=== PATIENT | female | born 1970 | race Caucasian/White ===

== ENCOUNTER → 2018-06-09 | Outpatient (CLI) | payer MEDICAID ==
--- NOTE | 2018-06-10 07:46 | WOMENS IMAGING REPORT ---
EXAM DESCRIPTION: BILAT DIAGNOSTIC MAMMO W/CAD; U/S BREAST UNILATERAL, COMPL COMPLETED DATE/TIME: 06/09/2018 12:47 pm; 06/09/2018 1:34 pm REASON FOR STUDY: LEFT BREAST MASS; N63.20 N63.20 UNSPECIFIED LUMP IN THE LEFT BREAST, UNSPECIFIED QUAD COMPARISON: No previous available TECHNIQUE: Standard craniocaudal and mediolateral oblique views of each breast recorded using digita l acquisition. Additional left breast 90 mediolateral view, left breast cone compression in the lower outer quadran t in the area of palpable abnormality. Ultrasound left whole breast was also performed. LIMITATIONS: None. FINDINGS: RIGHT BREAST MASSES: No suspicious masses. CALCIFICATIONS: No new or suspicious calcifications. ARCHITECTURAL DISTORTION: None. DEVELOPING DENSITY: None. ASYMMETRY: None noted. OTHER: No other significant findings. LEFT BREAST MASSES: No suspicious masses. CALCIFICATIONS: No new or suspicious calcifications. ARCHITECTURAL DISTORTION: None. DEVELOPING DENSITY: None. ASYMMETRY: None noted. OTHER: No other significant finding. Read with the assistance of CAD: .[facility] - R2 Cenova Version 1.3 .[facility] - R2 Cenova Version 1.3 .[facility] Imaging - R2 Cenova Version 2.4 .[facility] - R2 Cenova Version 2.4 .[facility] - R2 Production Operations Inspector Version 9.2 Left breast ultrasound: Patient presents with a palpable area in the left breast lower outer quadrant. In the area of palpab le abnormality 4 to 5 o'clock position, a 6 mm simple breast parenchymal cyst is present. Elsewhere in the left breast, at about the 9 to 10 o'clock position a 4 mm cyst is present. In the 1 to 2 o'clock position an 8 mm cyst is present. No worrisome acoustic absorption or solid nodules. IMPRESSION: No mammographic evidence for malignancy right breast. No mammographic or sonographic evidence for malignancy left breast. BREAST DENSITY: c. The breasts are heterogeneously dense, which may obscure small masses. BIRAD: 2 Benign findings. RECOMMENDATION: RECOMMENDED FOLLOW UP: Please continue yearly bilateral screening mammography. Cons ider tomosynthesis given heterogeneously dense tissue SPECIFIC INTERVENTION/IMAGING/CONSULTATION RECOMMENDED:No additional intervention/ imaging/consultati on needed at this time. COMMUNICATION:Patient notified by letter COMMENT: The patient has been notified of the results by letter per MQSA requirements. Additional no tification policies are in place for contacting patient with suspicious or incomplete findings. Quality ID #[id number]: The [employer] recommends an annual screening mammogram for women aged 40 years or over. This facility utilizes a reminder system to ensure that all patients receive reminder letters, and/or direct phone calls for appointments. This includes reminders for routine scr eening mammograms, diagnostic mammograms, or other Breast Imaging Interventions when appropriate. Th is patient will be placed in the appropriate reminder system. The [employer] (ACR) has developed recommendations for screening MRI of the breast s in certain patient populations, to be used in conjunction with mammography. Breast MRI surveillanc e may be appropriate for women with more than 20% lifetime risk of developing breast cancer as deter mined by genetic testing, significant family history of the disease, or history of mantle radiation f or Hodgkins Disease. ACR Practice Guidelines 2008. TECHNICAL DOCUMENTATION: FINDING NUMBER: (1) ASSESSMENT: (1) JOB ID: [id number] [employer]- All Rights Reserved Reading location - IP/workstation name: [email or web address]
--- NOTE | 2018-06-10 07:46 | WOMENS IMAGING REPORT ---
EXAM DESCRIPTION: BILAT DIAGNOSTIC MAMMO W/CAD; U/S BREAST UNILATERAL, COMPL COMPLETED DATE/TIME: 06/09/2018 12:47 pm; 06/09/2018 1:34 pm REASON FOR STUDY: LEFT BREAST MASS; N63.20 N63.20 UNSPECIFIED LUMP IN THE LEFT BREAST, UNSPECIFIED QUAD COMPARISON: No previous available TECHNIQUE: Standard craniocaudal and mediolateral oblique views of each breast recorded using digita l acquisition. Additional left breast 90 mediolateral view, left breast cone compression in the lower outer quadran t in the area of palpable abnormality. Ultrasound left whole breast was also performed. LIMITATIONS: None. FINDINGS: RIGHT BREAST MASSES: No suspicious masses. CALCIFICATIONS: No new or suspicious calcifications. ARCHITECTURAL DISTORTION: None. DEVELOPING DENSITY: None. ASYMMETRY: None noted. OTHER: No other significant findings. LEFT BREAST MASSES: No suspicious masses. CALCIFICATIONS: No new or suspicious calcifications. ARCHITECTURAL DISTORTION: None. DEVELOPING DENSITY: None. ASYMMETRY: None noted. OTHER: No other significant finding. Read with the assistance of CAD: .[facility] - R2 Cenova Version 1.3 .[facility] - R2 Cenova Version 1.3 .[facility] Imaging - R2 Cenova Version 2.4 .[facility] - R2 Cenova Version 2.4 .[facility] - R2 Furniture Removalist Version 9.2 Left breast ultrasound: Patient presents with a palpable area in the left breast lower outer quadrant. In the area of palpab le abnormality 4 to 5 o'clock position, a 6 mm simple breast parenchymal cyst is present. Elsewhere in the left breast, at about the 9 to 10 o'clock position a 4 mm cyst is present. In the 1 to 2 o'clock position an 8 mm cyst is present. No worrisome acoustic absorption or solid nodules. IMPRESSION: No mammographic evidence for malignancy right breast. No mammographic or sonographic evidence for malignancy left breast. BREAST DENSITY: c. The breasts are heterogeneously dense, which may obscure small masses. BIRAD: 2 Benign findings. RECOMMENDATION: RECOMMENDED FOLLOW UP: Please continue yearly bilateral screening mammography. Cons ider tomosynthesis given heterogeneously dense tissue SPECIFIC INTERVENTION/IMAGING/CONSULTATION RECOMMENDED:No additional intervention/ imaging/consultati on needed at this time. COMMUNICATION:Patient notified by letter COMMENT: The patient has been notified of the results by letter per MQSA requirements. Additional no tification policies are in place for contacting patient with suspicious or incomplete findings. Quality ID #[id number]: The [employer] recommends an annual screening mammogram for women aged 40 years or over. This facility utilizes a reminder system to ensure that all patients receive reminder letters, and/or direct phone calls for appointments. This includes reminders for routine scr eening mammograms, diagnostic mammograms, or other Breast Imaging Interventions when appropriate. Th is patient will be placed in the appropriate reminder system. The [employer] (ACR) has developed recommendations for screening MRI of the breast s in certain patient populations, to be used in conjunction with mammography. Breast MRI surveillanc e may be appropriate for women with more than 20% lifetime risk of developing breast cancer as deter mined by genetic testing, significant family history of the disease, or history of mantle radiation f or Hodgkins Disease. ACR Practice Guidelines 2008. TECHNICAL DOCUMENTATION: FINDING NUMBER: (1) ASSESSMENT: (1) JOB ID: [id number] [employer]- All Rights Reserved Reading location - IP/workstation name: [email or web address]-RR
== END ==
LOC: WI 12:30
PROVIDERS: ATTEND Family Medicine
DX: N63.23 Unspecified lump in the left breast, lower outer quadrant (principal)
CPT/HCPCS: 76641; 77066

== ENCOUNTER 2018-08-25 18:24 | Emergency (ER) | payer MEDICAID ==
[2018-08-25] MEDS ORDERED: ASPIRIN 81 MG TABLET, CHEWABLE PO ONE (18:57)
[2018-08-25] MEDS ORDERED: IPRATROPIUM/ALBUTEROL 0.5-2.5 MG/3 ML AMPUL NEB ONE (18:58)
[2018-08-25] MEDS ORDERED: METHYLPREDNISOLONE INJ 125 MG/2 ML SDV IV ONE (18:58)
--- NOTE | 2018-08-25 18:59 | RADIOLOGY REPORT (SQ) ---
EXAM DESCRIPTION: CHEST 2 VIEWS COMPLETED DATE/TIME: 08/25/2018 6:46 pm REASON FOR STUDY: chest pain COMPARISON: 12/31/2011 EXAM PARAMETERS: NUMBER OF VIEWS: two views TECHNIQUE: Digital Frontal and Lateral radiographic views of the chest acquired. RADIATION DOSE: NA LIMITATIONS: none FINDINGS: LUNGS AND PLEURA: Blunting of the posterior costophrenic angles. No focal consolidation o r pneumothorax. MEDIASTINUM AND HILAR STRUCTURES: No masses or contour abnormalities. HEART AND VASCULAR STRUCTURES: Heart normal size. No evidence for failure. BONES: No acute findings. HARDWARE: None in the chest. OTHER: No other significant finding. IMPRESSION: Blunting of the posterior costophrenic angles, likely secondary to atelectasis versus tr sonal pleural effusions. TECHNICAL DOCUMENTATION: JOB ID: [id number] [employer]- All Rights Reserved Reading location - IP/workstation name: [email or web address]
--- NOTE | 2018-08-25 19:03 | ER Document Report ---
ED Medical Screen (RME) - General Chief Complaint: Chest Tightness Stated Complaint: CHEST PAIN Time Seen by Provider: 08/25/18 18:48 Information source: Patient Notes: 47-year-old female presents emergency department with complaints of shortness of breath and chest pain. Patient has a history of COPD. She was seen at her family doctor's office today and given 3 nebulizer treatments. She was sent home with a prescription for azithromycin, nebulizer, and prednisone. Patient states that she filled the medications. She took her first dose of the azithromycin today. She has not yet use the nebulizer or taking the prednisone. Patient is not on home oxygen. Patient states that she is having worsening shortness of breath throughout the day. Patient states that her chest feels very tight and there is a pressure sensation. She denies any alleviating or exacerbating factors. I have greeted and performed a rapid initial assessment of this patient. A comprehensive ED assessment and evaluation of the patient, analysis of test results and completion of the medical decision making process will be conducted by additional ED providers. PHYSICAL EXAMINATION: GENERAL: Well-appearing, well-nourished and in no acute distress. HEAD: Atraumatic, normocephalic. EYES: Pupils equal round extraocular movements intact, conjunctiva are normal. ENT: Nares patent NECK: Normal range of motion LUNGS: No respiratory distress Musculoskeletal: Normal range of motion NEUROLOGICAL: Normal speech, normal gait. PSYCH: Normal mood, normal affect. SKIN: Warm, Dry, normal turgor, no rashes or lesions noted. TRAVEL OUTSIDE OF THE [place] IN LAST 30 DAYS: No - Related Data Allergies/Adverse Reactions: Penicillins Allergy (Severe, Verified 08/25/18 18:24) Anaphylaxis Past Medical History - Social History Chew tobacco use (# tins/day): No Frequency of alcohol use: None Drug Abuse: None - Past Medical History Cardiac Medical History: Reports: Hx Heart Attack, Hx Hypertension Pulmonary Medical History: Reports: Hx Asthma, Hx COPD Renal/ Medical History: Denies: Hx Peritoneal Dialysis Past Surgical History: Reports: Hx Cholecystectomy - Immunizations Hx Diphtheria, Pertussis, Tetanus Vaccination: Yes Physical Exam - Vital signs Vitals: Temp Pulse Resp BP Pulse Ox 98.6 F 102 H 28 H 144/94 H 95 08/25/18 18:46 08/25/18 18:46 08/25/18 18:46 08/25/18 18:46 08/25/18 18:46 Course - Vital Signs Vital signs: Temp Pulse Resp BP Pulse Ox 98.6 F 102 H 28 H 144/94 H 95 08/25/18 18:46 08/25/18 18:46 08/25/18 18:46 08/25/18 18:46 08/25/18 18:46 Doctor's Discharge - Discharge Referrals: SHAUNA OCHOA MD [Primary Care Provider] - Follow up as needed
[2018-08-25 19:25] LABS: ABSOLUTE BASOPHILS # (AUTO) 0.1 10^3/uL (0.0-0.2); ABSOLUTE EOSINOPHILS # (AUTO) 0.4 10^3/uL (0.0-0.6); ABSOLUTE LYMPHOCYTES (AUTO) 1.4 10^3/uL (0.5-4.7); ABSOLUTE NEUT (AUTO) 11.6 10^3/uL (1.7-8.2); BASOPHILS % (AUTO) 0.6 % (0-2); EOSINOPHILS % (AUTO) 2.7 % (0-6); HEMOGLOBIN 13.8 g/dL (12.0-15.5); LYMPHOCYTES % (AUTO) 9.9 % (13-45); MEAN CORPUSCULAR HEMOGLOBIN 32.4 pg (27.0-33.4); MEAN CORPUSCULAR HGB CONC 34.4 g/dL (32.0-36.0); MEAN CORPUSCULAR VOLUME 94 fl (80-97); MONOCYTES % (AUTO) 6.9 % (3-13); PLATELET COUNT 333 10^3/uL (150-450); RED BLOOD COUNT 4.25 10^6/uL (3.72-5.28); RED CELL DISTRIBUTION WIDTH 12.7 % (11.5-14.0); SEGMENTED NEUTROPHILS % (AUTO) 79.9 % (42-78); TOTAL CELLS COUNTED % (AUTO) 100 %; WHITE BLOOD COUNT 14.6 10^3/uL (4.0-10.5)
[2018-08-25 19:42] LABS: ALANINE AMINOTRANSFERASE 22 U/L (9-52); ALBUMIN 4.4 g/dL (3.5-5.0); ALKALINE PHOSPHATASE 51 U/L (38-126); ANION GAP 12 (5-19); ASPARTATE AMINO TRANSFERASE 24 U/L (14-36); BILIRUBIN,DIRECT 0.2 mg/dL (0.0-0.4); BILIRUBIN,TOTAL 0.4 mg/dL (0.2-1.3); BLOOD UREA NITROGEN 11 mg/dL (7-20); CALCIUM 9.3 mg/dL (8.4-10.2); CARBON DIOXIDE 24 mmol/L (22-30); CHLORIDE 105 mmol/L (98-107); GLUCOSE 105 mg/dL (75-110); POTASSIUM 4.4 mmol/L (3.6-5.0); SODIUM 140.9 mmol/L (137-145); TOTAL PROTEIN 7.5 g/dL (6.3-8.2)
--- NOTE | 2018-08-25 20:45 | EKG REPORT ---
SEVERITY:- ABNORMAL ECG - SINUS TACHYCARDIA VENTRICULAR BIGEMINY BORDERLINE ST DEPRESSION, INFERIOR LEADS : Confirmed by: Cheryl Sandoval MD 25-Aug-2018 20:43:54
--- NOTE | 2018-08-25 22:03 | ER Document Report ---
ED General - General Mode of Arrival: Ambulatory Information source: Patient TRAVEL OUTSIDE OF THE [place] IN LAST 30 DAYS: No <DAVID KELLEY - Last Filed: 08/25/18 22:14> <ASHLEYJOSÉ MIGUEL Piotr - Last Filed: 08/29/18 10:49> - General Chief Complaint: Chest Tightness Stated Complaint: CHEST PAIN Time Seen by Provider: 08/25/18 18:48 Notes: Patient is a 47-year-old female presenting to the emergency department complaining of increased shortness of breath and chest tightness onset today. Patient states that she began to have general malaise and cold symptoms 3 days ago after being around sick contacts. She states today she presented to her previous primary care physician's office, complaining of shortness of breath and chest tightness after which she received 3 nebulizer treatments and was given a prescription for prednisone and a Z-Ryan. She states she took her first dose of Z-Ryan today. She states that she began to have increased shortness of breath today and increased anxiety. Patient states while in triage, she received 1 breathing treatment and a dose of steroids. She also complains of chest tightness and back pain. (DAVID KELLEY) - Related Data Allergies/Adverse Reactions: Penicillins Allergy (Severe, Verified 08/25/18 18:24) Anaphylaxis Past Medical History - General Information source: Patient - Social History Smoking Status: Former Smoker Chew tobacco use (# tins/day): No Frequency of alcohol use: None Drug Abuse: None Family History: Reviewed & Not Pertinent Patient has suicidal ideation: No Patient has homicidal ideation: No - Past Medical History Cardiac Medical History: Reports: Hx Heart Attack, Hx Hypertension Pulmonary Medical History: Reports: Hx Asthma, Hx COPD Past Surgical History: Reports: Hx Cholecystectomy - Immunizations Hx Diphtheria, Pertussis, Tetanus Vaccination: Yes <DAVID KELLEY - Last Filed: 08/25/18 22:14> Review of Systems - Review of Systems Constitutional: See HPI, Malaise EENT: No symptoms reported Cardiovascular: See HPI, Chest pain - chest tightness Respiratory: See HPI, Short of breath Gastrointestinal: No symptoms reported Genitourinary: No symptoms reported Female Genitourinary: No symptoms reported Musculoskeletal: No symptoms reported Skin: No symptoms reported Neurological/Psychological: No symptoms reported -: Yes All other systems reviewed and negative <DAVID KELLEY - Last Filed: 08/25/18 22:14> Physical Exam <DAVID KELLEY - Last Filed: 08/25/18 22:14> <ASHLEYJOSÉ MIGUEL - Last Filed: 08/29/18 10:49> - Vital signs Vitals: Temp Pulse Resp BP Pulse Ox 98.6 F 102 H 28 H 144/94 H 95 08/25/18 18:46 08/25/18 18:46 08/25/18 18:46 08/25/18 18:46 08/25/18 18:46 - Notes Notes: GENERAL: Alert, interacts well. No acute distress. HEAD: Normocephalic, atraumatic. EYES: Pupils equal, round, and reactive to light. Extraocular movements intact. ENT: Oral mucosa moist, tongue midline. NECK: Full range of motion. Supple. Trachea midline. LUNGS: Poor air movement. HEART: Mild tachycardia. No murmurs, gallops, or rubs. ABDOMEN: Soft, non-tender. Non-distended. Bowel sounds present in all 4 quadrants. EXTREMITIES: Moves all 4 extremities spontaneously. No edema, radial and dorsalis pedis pulses 2/4 bilaterally. No cyanosis. NEUROLOGICAL: Alert and oriented x3. Normal speech. PSYCH: Normal affect, normal mood. SKIN: Warm, dry, normal turgor. No rashes or lesions noted. (DAVID KELLEY) Course - Laboratory Result Diagrams: 08/25/18 19:10 08/25/18 19:10 <DAVID KELLEY - Last Filed: 08/25/18 22:14> - Laboratory Result Diagrams: 08/25/18 19:10 08/25/18 19:10 - Diagnostic Test Radiology reviewed: Image reviewed, Reports reviewed - EKG Interpretation by Ct EKG shows normal: Sinus rhythm Rate: Tachycardia - normal axis <ASHLEYJOSÉ MIGUEL - Last Filed: 08/29/18 10:49> - Re-evaluation Re-evalutation: 08/26/18 02:26 Patient symptoms improved with nebulizer treatments. Offered inpatient admittance for observation patient declined and would like to go home. She is oxygenating at 96% on room air in no distress with reevaluation patient has adequate air movement but continues to have mild wheezing. Advised patient to use albuterol puffer 4 puffs every 4 hours for the next 2 days and to continue take her steroids and azithromycin provided by her primary care provider. Return precautions provided 08/26/18 02:29 Of note, patient denies any chest pain during her hospital stay. She did states she had chest tightness but that resolved after albuterol treatment (JOSÉ MIGUEL RAMIREZ) - Vital Signs Vital signs: Temp Pulse Resp BP Pulse Ox 98.6 F 102 H 15 131/77 H 95 08/25/18 18:46 08/25/18 18:46 08/26/18 02:01 08/26/18 02:01 08/26/18 02:01 - Laboratory Laboratory results interpreted by me: 08/25/18 19:10 WBC 14.6 H Seg Neutrophils % 79.9 H Lymphocytes % 9.9 L Absolute Neutrophils 11.6 H Discharge <DAVID KELLEY - Last Filed: 08/25/18 22:14> <JOSÉ MIGUEL RAMIREZ - Last Filed: 08/29/18 10:49> - Discharge Clinical Impression: COPD exacerbation Condition: Good Disposition: HOME, SELF-CARE Instructions: Chronic Obstructive Lung Disease ([facility]) Additional Instructions: Please take all antibiotics in steroids that were prescribed by your primary care provider as directed. Please use albuterol puffer 4 puffs every 4 hours for the next 2 days while awake and then 2 puffs every 4 hours as needed thereafter Referrals: SHAUNA OCHOA MD [PEDIATRICS] - Follow up in 3-5 days Scribe Attestation: 08/29/18 10:49 I personally performed the services described in the documentation, reviewed and edited the documentation which was dictated to the scribe in my presence, and it accurately records my words and actions. (JOSÉ MIGUEL RAMIREZ) Scribe Documentation - Scribe Written by Heather:: Heather Kaye, 08/25/2018 22:19 acting as scribe for :: Ashley <DAVID KELLEY - Last Filed: 08/25/18 22:14>
[2018-08-25] MEDS ORDERED: IPRATROPIUM BROMIDE 0.02% NEB 0.5 MG/2.5 ML AMPUL NEB PRN (22:09)
[2018-08-25] MEDS ORDERED: ALBUTEROL SULFATE 0.083% NEB 2.5 MG/3 ML AMPUL NEB ONE (22:10)
[2018-08-26] MEDS ORDERED: IPRATROPIUM BROMIDE 0.02% NEB 0.5 MG/2.5 ML AMPUL NEB ONE (00:43)
[2018-08-26] MEDS ORDERED: ALBUTEROL SULFATE 0.083% NEB 2.5 MG/3 ML AMPUL NEB ONE (00:43)
[2018-08-26 02:17] VITALS: BP 131/77
[2018-08-26] MEDS ORDERED: KETOROLAC TROMETHAMINE INJ/PF 30 MG/1 ML SDV IV ONE (02:24)
== END 2018-08-26 02:45 | disposition home or self-care (01) ==
LOC: ER 18:24
DX: J44.1 Chronic obstructive pulmonary disease with (acute) exacerbation (principal); R07.9 Chest pain, unspecified; R53.81 Other malaise; I10 Essential (primary) hypertension; Z90.49 Acquired absence of other specified parts of digestive tract; Z88.0 Allergy status to penicillin; I25.2 Old myocardial infarction; Z87.891 Personal history of nicotine dependence
CPT/HCPCS: 93005; 94640 ×2; 99285; 96374; 96375; 36415; 85025; 80053; 84484; 71046; 93010; J2930; J1885; J3490 ×2; J7620

== ENCOUNTER 2019-06-22 19:40 | Inpatient (IN) | payer SELFPAY ==
--- NOTE | 2019-06-22 19:55 | ER Document Report ---
ED General - General Stated Complaint: TROUBLE BREATHING Time Seen by Provider: 06/22/19 19:49 Primary Care Provider: SUSAN TREJO MD [Primary Care Provider] - Follow up as needed TRAVEL OUTSIDE OF THE [place] IN LAST 30 DAYS: No - HPI Notes: Patient is a 48-year-old female that presents to the emergency department for chief complaint of shortness of breath. Patient called EMS tonight complaining of increased shortness of breath. She states she has had progressive shortness of breath over the last 4 days. She does have COPD and was recently started on home oxygen. EMS states they found her on 1-1/2 L nasal cannula oxygen and the tubing was very long. Her O2 saturation was 62% and she had significant increased work of breathing. EMS administered DuoNeb, 2 albuterol's, 125 mg IV Solu-Medrol and 1 g IV magnesium as well as placing the patient on BiPAP. Patient states that she is feeling somewhat better since receiving intervention by EMS. She denies history of needing CPAP or intubation in the past. She denies tobacco use. She has been using her home albuterol and other inhalers. Patient states that over the last 4 days she has had intermittent chest pain but cannot elaborate on how long it lasts or what it felt like. She does states she has had a fever and cough for the last few days as well. She denies vomiting or diarrhea. Past Medical History: Hypertension, COPD Past Surgical History: Reviewed in chart Social History: Tobacco drug and alcohol use Family History: Reviewed and noncontributory for presenting illness Allergies: Reviewed, see documented allergy list. REVIEW OF SYSTEMS: CONSTITUTIONAL : fever No chills No diaphoresis No recent illness EENT: No vision changes No congestion No sore throat CARDIOVASCULAR: chest pain No palpitations RESPIRATORY: shortness of breath cough No difficulty breathing GASTROINTESTINAL: No abdominal pain No nausea No vomiting No diarrhea GENITOURINARY: No dysuria No hematuria No difficulty urinating MUSCULOSKELETAL: No back pain No leg pain No arm pain SKIN: No rashes No lesions LYMPHATIC: No swollen, enlarged glands. NEUROLOGICAL: No lightheadedness No headache No weakness No paresthesias PSYCHIATRIC: No anxiety No depression PHYSICAL EXAMINATION: Vital signs reviewed, nursing noted reviewed. GENERAL: In mild respiratory distress. Alert, nontoxic. HEAD: Atraumatic, normocephalic. EYES: Eyes appear normal, extraocular movements intact, sclera anicteric, conjunctiva are normal. ENT: nares patent, oropharynx clear without exudates. Moist mucous membranes. NECK: Normal range of motion, supple without lymphadenopathy LUNGS: Breath sounds diminished with expiratory wheezing. Patient tachypneic with mild accessory muscle use and no retractions. HEART: Regular rate and rhythm without murmurs ABDOMEN: Soft, nontender, normoactive bowel sounds. No rebound, guarding, or rigidity. No masses appreciated. EXTREMITIES: Nontender, good range of motion, no pitting or edema. NEUROLOGICAL: No focal neurological deficits. Moves all extremities spontaneously Motor and sensory grossly intact on exam. PSYCH: Normal mood, normal affect. SKIN: Warm, Dry, normal turgor, no rashes or lesions noted on exposed skin - Related Data Allergies/Adverse Reactions: Penicillins Allergy (Severe, Verified 08/25/18 18:24) Anaphylaxis Past Medical History - Social History Smoking Status: Former Smoker Family History: Reviewed & Not Pertinent - Past Medical History Cardiac Medical History: Reports: Hx Heart Attack, Hx Hypertension Pulmonary Medical History: Reports: Hx Asthma, Hx COPD Renal/ Medical History: Denies: Hx Peritoneal Dialysis Past Surgical History: Reports: Hx Cholecystectomy - Immunizations Hx Diphtheria, Pertussis, Tetanus Vaccination: Yes Physical Exam - Vital signs Vitals: Pulse Resp BP 113 H 33 H 139/96 H 06/22/19 19:40 06/22/19 19:40 06/22/19 19:40 Course - Re-evaluation Re-evalutation: 06/22/19 19:55 Vitals reviewed. Nursing notes reviewed. Patient appeared on BiPAP by EMS. She received DuoNeb, albuterol x2, Solu-Medrol 125 mg and 1 g of IV magnesium. Patient's initial presentation is consistent with COPD exacerbation. She has reported improvement in her respiratory status while on BiPAP per EMS and will remain on BiPAP. Blood work has been ordered. 06/22/19 21:31 Patient's ABG shows hypercapnic respiratory failure with decompensation. Her cardiac enzymes are normal and EKG showed no ischemia to suggest acute ACS. Patient does have an elevated WBC count without report of fever. She has been given a dose of azithromycin. Chest x-ray shows no underlying pneumonia. Clinically do not suspect sepsis as this patient is nontoxic-appearing however she is meeting criteria. Her leukocytosis may be secondary to steroids. Blood cultures and lactate have been obtained. Patient's care discussed with Dr. Calderon who accepts admission Laboratory 06/22/19 06/22/19 06/22/19 20:32 20:32 20:32 WBC 23.4 H RBC 4.26 Hgb 13.3 Hct 39.8 MCV 94 MCH 31.1 MCHC 33.3 RDW 14.7 H Plt Count 344 Lymph % (Auto) Not Reportable Ness % (Auto) Not Reportable Eos % (Auto) Not Reportable Baso % (Auto) Not Reportable Absolute Neuts (auto) Not Reportable Absolute Lymphs (auto) Not Reportable Absolute Monos (auto) Not Reportable Absolute Eos (auto) Not Reportable Absolute Basos (auto) Not Reportable Total Counted 100 Seg Neutrophils % Not Reportable Seg Neuts % (Manual) 94 H Lymphocytes % (Manual) 3 L Atypical Lymphs % 1 Monocytes % (Manual) 1 L Eosinophils % (Manual) 1 Basophils % (Manual) 0 Abs Neuts (Manual) 22.0 H Abs Lymphs (Manual) 0.9 Abs Monocytes (Manual) 0.2 Absolute Eos (Manual) 0.2 Abs Basophils (Manual) 0.0 Platelet Comment ADEQUATE Anisocytosis SLIGHT Carbonic Acid HCO3/H2CO3 Ratio ABG pH ABG pCO2 ABG pO2 ABG HCO3 ABG Total CO2 ABG O2 Saturation ABG Base Excess FiO2 Sodium 138.4 Potassium 4.9 Chloride 100 Carbon Dioxide 29 Anion Gap 9 BUN 6 L Creatinine 0.69 Est GFR ( Amer) > 60 Est GFR (MDRD) Non-Af > 60 Glucose 193 H Calcium 8.5 Total Bilirubin 0.2 Direct Bilirubin 0.2 Neonat Total Bilirubin Not Reportable Neonat Direct Bilirubin Not Reportable Neonat Indirect Bili Not Reportable AST 47 H ALT 28 Alkaline Phosphatase 54 Troponin I < 0.012 Total Protein 6.7 Albumin 4.2 06/22/19 20:32 WBC RBC Hgb Hct MCV MCH MCHC RDW Plt Count Lymph % (Auto) Ness % (Auto) Eos % (Auto) Baso % (Auto) Absolute Neuts (auto) Absolute Lymphs (auto) Absolute Monos (auto) Absolute Eos (auto) Absolute Basos (auto) Total Counted Seg Neutrophils % Seg Neuts % (Manual) Lymphocytes % (Manual) Atypical Lymphs % Monocytes % (Manual) Eosinophils % (Manual) Basophils % (Manual) Abs Neuts (Manual) Abs Lymphs (Manual) Abs Monocytes (Manual) Absolute Eos (Manual) Abs Basophils (Manual) Platelet Comment Anisocytosis Carbonic Acid 1.51 H HCO3/H2CO3 Ratio 14:1 ABG pH 7.25 L ABG pCO2 50.2 H ABG pO2 129.6 H ABG HCO3 21.3 ABG Total CO2 22.8 ABG O2 Saturation 98.1 H ABG Base Excess -6.3 FiO2 35% Sodium Potassium Chloride Carbon Dioxide Anion Gap BUN Creatinine Est GFR ( Amer) Est GFR (MDRD) Non-Af Glucose Calcium Total Bilirubin Direct Bilirubin Neonat Total Bilirubin Neonat Direct Bilirubin Neonat Indirect Bili AST ALT Alkaline Phosphatase Troponin I Total Protein Albumin Chest X-Ray 06/22/19 19:49 IMPRESSION: No acute disease. copyright 2010 [employer]- All Rights Reserved - Vital Signs Vital signs: Temp Pulse Resp BP Pulse Ox 97.6 F 113 H 21 H 126/91 H 98 06/22/19 20:02 06/22/19 19:40 06/22/19 21:01 06/22/19 21:01 06/22/19 21:01 - Laboratory Result Diagrams: 06/22/19 20:32 06/22/19 20:32 Laboratory results interpreted by me: 06/22/19 06/22/19 06/22/19 20:32 20:32 20:32 WBC 23.4 H RDW 14.7 H Seg Neuts % (Manual) 94 H Lymphocytes % (Manual) 3 L Monocytes % (Manual) 1 L Abs Neuts (Manual) 22.0 H Carbonic Acid 1.51 H ABG pH 7.25 L ABG pCO2 50.2 H ABG pO2 129.6 H ABG O2 Saturation 98.1 H BUN 6 L Glucose 193 H AST 47 H - EKG Interpretation by Me Additional EKG results interpreted by me: 06/22/19 20:41 Interpreted by myself 1950:Sinus tachycardia, rate 110, borderline right axis, no STEMI, no ectopy Critical Care Note - Critical Care Note Total time excluding time spent on procedures (mins): 42 Comments: Critical care time 42 exclusive from separate billable procedures for a patient requiring complex medical decision making, and high potential for clinical deterioration. Time spent obtaining history from patient or surrogate, discussions with consultants, development of treatment plan with patient or surrogate, evaluation of patient's response to treatment, examination of patient, ordering and performing treatments and interventions, ordering and review of laboratory studies, re-evaluation of patient's condition, ordering and review of radiographic studies and review of old charts Discharge - Discharge Clinical Impression: COPD exacerbation Hypercapnic respiratory failure Qualifiers: Chronicity: acute Qualified Code(s): J96.02 - Acute respiratory failure with hypercapnia Condition: Stable Disposition: ADMITTED INPATIENT Admitting Provider: Kvng (Hospitalist) Unit Admitted: Telemetry
--- NOTE | 2019-06-22 20:53 | RADIOLOGY REPORT (SQ) ---
EXAM DESCRIPTION: XR CHEST 1 VIEW COMPLETED DATE/TME: 06/22/2019 19:49 CLINICAL HISTORY: 48 years, Female, shortness of breath COMPARISON: Prior study from 12/31/2011 NUMBER OF VIEWS: One TECHNIQUE: Single frontal view of the chest was obtained portably. LIMITATIONS: None. FINDINGS: Cardiac and mediastinal contours are normal in appearance. Lungs are clear. No pleural effusion or pneumothorax. IMPRESSION: No acute disease. copyright 2010 [employer]- All Rights Reserved
[2019-06-22 20:59] LABS: ARTERIAL BLOOD BASE EXCESS -6.3 mmol/L; ARTERIAL BLOOD H2CO3 1.51 mmol/L (1.05-1.35); ARTERIAL BLOOD HCO3 21.3 mmol/L (20-24); ARTERIAL BLOOD O2 SATURATION 98.1 % (94-98); ARTERIAL BLOOD PCO2 50.2 mmHg (35-45); ARTERIAL BLOOD PH 7.25 (7.35-7.45); ARTERIAL BLOOD PO2 129.6 mmHg (80-100); ARTERIAL BLOOD TOTAL CO2 22.8 mmol/L (21-25)
[2019-06-22 21:00] LABS: ARTERIAL BLOOD FIO2 35%
[2019-06-22 21:03] LABS: HEMATOCRIT 39.8 % (36.0-47.0); HEMOGLOBIN 13.3 g/dL (12.0-15.5); MEAN CORPUSCULAR HEMOGLOBIN 31.1 pg (27.0-33.4); MEAN CORPUSCULAR HGB CONC 33.3 g/dL (32.0-36.0); MEAN CORPUSCULAR VOLUME 94 fl (80-97); PLATELET COUNT 344 10^3/uL (150-450); RED BLOOD COUNT 4.26 10^6/uL (3.72-5.28); RED CELL DISTRIBUTION WIDTH 14.7 % (11.5-14.0); WHITE BLOOD COUNT 23.4 10^3/uL (4.0-10.5)
[2019-06-22 21:13] LABS: ALBUMIN 4.2 g/dL (3.5-5.0); ALKALINE PHOSPHATASE 54 U/L (38-126); ANION GAP 9 (5-19); ASPARTATE AMINO TRANSFERASE 47 U/L (14-36); BILIRUBIN,DIRECT 0.2 mg/dL (0.0-0.4); BILIRUBIN,TOTAL 0.2 mg/dL (0.2-1.3); BLOOD UREA NITROGEN 6 mg/dL (7-20); CALCIUM 8.5 mg/dL (8.4-10.2); CARBON DIOXIDE 29 mmol/L (22-30); CHLORIDE 100 mmol/L (98-107); GLUCOSE 193 mg/dL (75-110); POTASSIUM 4.9 mmol/L (3.6-5.0); TOTAL PROTEIN 6.7 g/dL (6.3-8.2)
[2019-06-22 21:23] LABS: ABSOLUTE LYMPHOCYTES# (MANUAL) 0.9 10^3/uL (0.5-4.7); ABSOLUTE MONOCYTES # (MANUAL) 0.2 10^3/uL (0.1-1.4); ANISOCYTOSIS SLIGHT; BASOPHILS % (MANUAL) 0 % (0-2); EOSINOPHILS % (MANUAL) 1 % (0-6); LYMPHOCYTES % (MANUAL) 3 % (13-45); MONOCYTES % (MANUAL) 1 % (3-13); PLATELET COMMENT ADEQUATE; SEGMENTED NEUTROPHILS % (MAN) 94 % (42-78); TOTAL CELLS COUNTED 100
[2019-06-22] MEDS ORDERED: AZITHROMYCIN INJ 500 MG VIAL IV ONE (21:27)
[2019-06-22] MEDS ORDERED: IPRATROPIUM/ALBUTEROL 0.5-2.5 MG/3 ML AMPUL NEB PRN (21:30)
[2019-06-22] MEDS ORDERED: PREDNISONE 20 MG TABLET PO SCH (21:30)
--- NOTE | 2019-06-22 23:37 | EKG REPORT ---
SEVERITY:- ABNORMAL ECG - SINUS TACHYCARDIA RIGHT ATRIAL ABNORMALITY BORDERLINE RIGHT AXIS DEVIATION MINIMAL ST DEPRESSION, INFERIOR LEADS : Confirmed by: Waqar De La Cruz MD 22-Jun-2019 23:36:28
[2019-06-22] MEDS: METHYLPREDNISOLONE INJ 125 MG/2 ML SDV IV SCH (23:43)
[2019-06-22] MEDS: CHLORPHENIRAMINE MALEATE 4 MG TABLET PO SCH (23:43)
[2019-06-22] MEDS: HEPARIN SOD (PORCINE) 5,000 UNIT/ML 1 ML VIAL SUBCUT SCH (23:43)
[2019-06-22] MEDS: FLUTICASONE NASAL SPRAY 50 MCG/SPRY 120 SPRAY/16 GM NASL SCH (23:44)
[2019-06-22] MEDS: CEFTRIAXONE 1 GM/D5W RTU 1 GM/50 ML RTUPB IV SCH (23:44)
[2019-06-23] MEDS: IPRATROPIUM/ALBUTEROL 0.5-2.5 MG/3 ML AMPUL NEB SCH ×4 (02:09→20:12)
[2019-06-23 05:24] LABS: ABSOLUTE LYMPHOCYTES (AUTO) 0.4 10^3/uL (0.5-4.7); ABSOLUTE MONOCYTES (AUTO) 0.1 10^3/uL (0.1-1.4); ABSOLUTE NEUT (AUTO) 4.2 10^3/uL (1.7-8.2); BASOPHILS % (AUTO) 0.1 % (0-2); HEMATOCRIT 37.8 % (36.0-47.0); HEMOGLOBIN 12.9 g/dL (12.0-15.5); MEAN CORPUSCULAR HEMOGLOBIN 31.4 pg (27.0-33.4); MEAN CORPUSCULAR VOLUME 92 fl (80-97); MONOCYTES % (AUTO) 1.1 % (3-13); PLATELET COUNT 306 10^3/uL (150-450); RED CELL DISTRIBUTION WIDTH 14.8 % (11.5-14.0); SEGMENTED NEUTROPHILS % (AUTO) 90.8 % (42-78); TOTAL CELLS COUNTED % (AUTO) 100 %; WHITE BLOOD COUNT 4.6 10^3/uL (4.0-10.5)
--- NOTE | 2019-06-23 05:26 | PDOC H&P ---
History of Present Illness Admission Date/PCP: 06/22/19 21:42 SUSAN TREJO MD Patient complains of: Shortness of breath History of Present Illness: BALJIT FARRIS is a 48 year old female with a past medical history of home oxygen dependent COPD presents with 4 days of rhinorrhea without sore throat but worsening baseline shortness of breath at rest. She denies chest pain, nausea vomiting or fever. In the emergency room she is found to have wheezing, poor air movement, hypoxia started on Solu-Medrol, albuterol and referred to the hospitalist for admission patient denies recent antibiotic use and remains abstinent from tobacco. Past Medical History Cardiac Medical History: Reports: Myocardial Infarction, Hypertension Pulmonary Medical History: Reports: Asthma, Bronchitis, Chronic Obstructive Pulmonary Disease (COPD) EENT Medical History: Reports: None Neurological Medical History: Reports: None Endocrine Medical History: Reports: None Renal/ Medical History: Reports: None Malignancy Medical History: Reports: None GI Medical History: Reports: None Musculoskeltal Medical History: Reports: None Skin Medical History: Reports: None Psychiatric Medical History: Reports: None Traumatic Medical History: Reports: None Hematology: Reports: None Infectious Medical History: Reports: None Past Surgical History Past Surgical History: Reports: Cholecystectomy Social History Information Source: Patient, Emergency Med Personnel Smoking Status: Former Smoker Frequency of Alcohol Use: None Drugs: None - Advance Directive Resuscitation Status: Full Code Family History Family History: Hypertension. denies: COPD Parental Family History Reviewed: Yes Children Family History Reviewed: Yes Sibling(s) Family History Reviewed.: Yes Medication/Allergy Home Medications: Diphenhydramine HCl [Benadryl Allergy] 25 mg PO PRN PRN 12/31/11 Methocarbamol [Robaxin 500 Mg Tablet] 500 mg PO QID PRN #60 tablet 11/03/13 Tramadol HCl [Ultram 50 mg Tablet] 50 mg PO ASDIR PRN #20 tablet 11/03/13 Allergies/Adverse Reactions: Penicillins Allergy (Severe, Verified 08/25/18 18:24) Anaphylaxis Review of Systems Respiratory: PRESENT: as per HPI, cough, dyspnea. ABSENT: hemoptysis, sputum Gastrointestinal: ABSENT: abdominal pain, constipation, diarrhea, hematemesis, hematochezia, nausea, vomiting Genitourinary: ABSENT: dysuria, hematuria Musculoskeletal: ABSENT: joint swelling Integumentary: ABSENT: rash, wounds Neurological: ABSENT: abnormal gait, abnormal speech, confusion, dizziness, focal weakness, syncope Psychiatric: ABSENT: anxiety, depression, homidical ideation, suicidal ideation Endocrine: ABSENT: cold intolerance, heat intolerance, polydipsia, polyuria Hematologic/Lymphatic: ABSENT: easy bleeding, easy bruising Physical Exam Vital Signs: Temp Pulse Resp BP Pulse Ox 97.3 F 83 19 125/80 98 06/23/19 04:00 06/23/19 04:00 06/23/19 05:05 06/23/19 04:00 06/23/19 05:05 Intake & Output 06/21/19 06/22/19 06/23/19 11:59 11:59 11:59 Intake Total 50 Balance 50 Weight 38.9 kg General appearance: PRESENT: cooperative, severe distress, thin, well-developed. ABSENT: well-nourished Head exam: PRESENT: atraumatic, normocephalic Eye exam: PRESENT: conjunctiva pink, EOMI, PERRLA. ABSENT: scleral icterus Ear exam: PRESENT: normal external ear exam Mouth exam: PRESENT: moist, tongue midline Throat exam: PRESENT: tonsillar erythema, other - Nasal mucosal cobblestoning. ABSENT: post pharyngeal erythema Neck exam: ABSENT: carotid bruit, JVD, lymphadenopathy, thyromegaly Respiratory exam: PRESENT: accessory muscle use, decreased breath sounds, prolonged expiratory phas, symmetrical, wheezes. ABSENT: crackles, rhonchi, stridor Cardiovascular exam: PRESENT: tachycardia. ABSENT: diastolic murmur, rubs, systolic murmur Pulses: PRESENT: normal dorsalis pedis pul Vascular exam: PRESENT: normal capillary refill GI/Abdominal exam: PRESENT: normal bowel sounds, soft. ABSENT: distended, guarding, mass, organolmegaly, rebound, tenderness Rectal exam: PRESENT: deferred Extremities exam: PRESENT: full ROM. ABSENT: calf tenderness, clubbing, pedal edema Neurological exam: PRESENT: alert, awake, oriented to person, oriented to place, oriented to time, oriented to situation, CN II-XII grossly intact. ABSENT: motor sensory deficit Psychiatric exam: PRESENT: appropriate affect, normal mood. ABSENT: homicidal ideation, suicidal ideation Skin exam: PRESENT: dry, intact, warm. ABSENT: cyanosis, rash Results Laboratory Results: 06/22/19 20:32 06/22/19 20:32 06/22/19 06/22/19 06/22/19 20:32 20:32 20:32 WBC 23.4 H RBC 4.26 Hgb 13.3 Hct 39.8 MCV 94 MCH 31.1 MCHC 33.3 RDW 14.7 H Plt Count 344 Seg Neutrophils % Not Reportable Carbonic Acid 1.51 H HCO3/H2CO3 Ratio 14:1 ABG pH 7.25 L ABG pCO2 50.2 H ABG pO2 129.6 H ABG HCO3 21.3 ABG O2 Saturation 98.1 H ABG Base Excess -6.3 FiO2 35% Sodium 138.4 Potassium 4.9 Chloride 100 Carbon Dioxide 29 Anion Gap 9 BUN 6 L Creatinine 0.69 Est GFR ( Amer) > 60 Glucose 193 H Lactic Acid Calcium 8.5 Total Bilirubin 0.2 AST 47 H Alkaline Phosphatase 54 Total Protein 6.7 Albumin 4.2 06/22/19 22:00 WBC RBC Hgb Hct MCV MCH MCHC RDW Plt Count Seg Neutrophils % Carbonic Acid HCO3/H2CO3 Ratio ABG pH ABG pCO2 ABG pO2 ABG HCO3 ABG O2 Saturation ABG Base Excess FiO2 Sodium Potassium Chloride Carbon Dioxide Anion Gap BUN Creatinine Est GFR ( Amer) Glucose Lactic Acid 1.3 Calcium Total Bilirubin AST Alkaline Phosphatase Total Protein Albumin 06/22/19 20:32 Troponin I < 0.012 Impressions: Chest X-Ray 06/22/19 19:49 IMPRESSION: No acute disease. copyright 2010 [employer]- All Rights Reserved Assessment and Plan - Diagnosis (1) Hypercapnic respiratory failure Qualifiers: Chronicity: acute Qualified Code(s): J96.02 - Acute respiratory failure with hypercapnia Is this a current diagnosis for this admission?: Yes Plan: Uncontrolled allergic sinusitis leading to acute exacerbation of chronic bronchitis, COPD exacerbation. Flonase and chlorpheniramine ordered. Albut maxine, Atrovent, supplemental oxygen, PRN BiPAP. Consider ABG (2) Acute bronchitis Is this a current diagnosis for this admission?: Yes Plan: Empiric antibiotics initiated, stress dose steroids (3) Allergic sinusitis Is this a current diagnosis for this admission?: Yes Plan: Chlorpheniramine and Flonase ordered (4) COPD exacerbation Is this a current diagnosis for this admission?: Yes Plan: Incentive spirometry, flutter valve, stress dose steroids and empiric antibiotics - Time Time Spent with patient: 25-34 minutes - Inpatient Certification Medical Necessity: Need Close Monitoring Due to Risk of Patient Decompensation
[2019-06-23 05:39] LABS: ANION GAP 10 (5-19); BLOOD UREA NITROGEN 7 mg/dL (7-20); CALCIUM 9.3 mg/dL (8.4-10.2); CARBON DIOXIDE 29 mmol/L (22-30); CHLORIDE 100 mmol/L (98-107); GLUCOSE 138 mg/dL (75-110); POTASSIUM 4.9 mmol/L (3.6-5.0)
[2019-06-23] MEDS: CHLORPHENIRAMINE MALEATE 4 MG TABLET PO SCH ×3 (05:42→16:53)
[2019-06-23] MEDS: PANTOPRAZOLE SODIUM 40 MG TABLET.DR PO SCH ×2 (05:42→16:53)
[2019-06-23] MEDS: HEPARIN SOD (PORCINE) 5,000 UNIT/ML 1 ML VIAL SUBCUT SCH ×3 (05:42→21:39)
[2019-06-23] MEDS: METHYLPREDNISOLONE INJ 125 MG/2 ML SDV IV SCH ×3 (05:42→21:39)
[2019-06-23] MEDS: CEFTRIAXONE 1 GM/D5W RTU 1 GM/50 ML RTUPB IV SCH (10:31)
[2019-06-23] MEDS: AZITHROMYCIN 500 MG in DEXTROSE 5%-WATER 250 ML IV SCH (10:31)
[2019-06-23] MEDS: FLUTICASONE NASAL SPRAY 50 MCG/SPRY 120 SPRAY/16 GM NASL SCH ×3 (10:32→21:33)
[2019-06-23] MEDS: ACETAMINOPHEN 325 MG TABLET PO PRN (16:53)
--- NOTE | 2019-06-23 17:10 | PDOC PROGRESS REPORT ---
Subjective Progress Note for:: 06/23/19 Subjective:: No adverse events overnight. No new complaints. She is back on her usual 2 L per nasal cannula that she is on at home. She says today her breathing feels about like it does at baseline. She says she is been taking all of her medications for her breathing as prescribed. She said she has not smoked in nearly 4 months. Reason For Visit: COPD EXACERBATION,PNEUMONIA Physical Exam Vital Signs: Temp Pulse Resp BP Pulse Ox 98.8 F 101 H 22 H 129/75 H 96 06/23/19 16:21 06/23/19 16:21 06/23/19 16:21 06/23/19 16:21 06/23/19 16:21 Intake & Output 06/22/19 06/23/19 06/24/19 06:59 06:59 06:59 Intake Total 50 920 Output Total 0 550 Balance 50 370 Weight 38.9 kg General appearance: PRESENT: no acute distress, cooperative, disheveled, thin Respiratory exam: PRESENT: decreased breath sounds, prolonged expiratory phas, symmetrical, other - Increased AP chest diameter. ABSENT: accessory muscle use, chest wall tenderness, crackles, rhonchi, tachypnea, unlabored, wheezes Cardiovascular exam: PRESENT: RRR, +S1, +S2 Pulses: PRESENT: normal carotid pulses Vascular exam: PRESENT: normal capillary refill GI/Abdominal exam: PRESENT: normal bowel sounds, soft. ABSENT: distended, gua rding, rebound, tenderness Extremities exam: ABSENT: clubbing, pedal edema Musculoskeletal exam: PRESENT: normal inspection. ABSENT: deformity Neurological exam: PRESENT: alert, awake, oriented to person, oriented to place, oriented to situation Psychiatric exam: PRESENT: appropriate affect, normal mood Skin exam: PRESENT: dry, warm Results Laboratory Results: 06/23/19 05:08 06/23/19 05:08 06/22/19 06/22/19 06/22/19 20:32 20:32 20:32 WBC 23.4 H RBC 4.26 Hgb 13.3 Hct 39.8 MCV 94 MCH 31.1 MCHC 33.3 RDW 14.7 H Plt Count 344 Seg Neutrophils % Not Reportable Carbonic Acid 1.51 H HCO3/H2CO3 Ratio 14:1 ABG pH 7.25 L ABG pCO2 50.2 H ABG pO2 129.6 H ABG HCO3 21.3 ABG O2 Saturation 98.1 H ABG Base Excess -6.3 FiO2 35% Sodium 138.4 Potassium 4.9 Chloride 100 Carbon Dioxide 29 Anion Gap 9 BUN 6 L Creatinine 0.69 Est GFR ( Amer) > 60 Glucose 193 H Lactic Acid Calcium 8.5 Total Bilirubin 0.2 AST 47 H Alkaline Phosphatase 54 Total Protein 6.7 Albumin 4.2 06/22/19 06/23/19 06/23/19 22:00 05:08 05:08 WBC 4.6 RBC 4.10 Hgb 12.9 Hct 37.8 MCV 92 MCH 31.4 MCHC 34.0 RDW 14.8 H Plt Count 306 Seg Neutrophils % 90.8 H Carbonic Acid HCO3/H2CO3 Ratio ABG pH ABG pCO2 ABG pO2 ABG HCO3 ABG O2 Saturation ABG Base Excess FiO2 Sodium 138.6 Potassium 4.9 Chloride 100 Carbon Dioxide 29 Anion Gap 10 BUN 7 Creatinine 0.57 Est GFR ( Amer) > 60 Glucose 138 H Lactic Acid 1.3 Calcium 9.3 Total Bilirubin AST Alkaline Phosphatase Total Protein Albumin 06/22/19 20:32 Troponin I < 0.012 Impressions: Chest X-Ray 06/22/19 19:49 IMPRESSION: No acute disease. copyright 2011 [employer]- All Rights Reserved Assessment and Plan - Diagnosis (1) COPD exacerbation Is this a current diagnosis for this admission?: Yes Plan: Continue steroids, antibiotics, bronchodilators, and ventilatory support. She is doing like this tomorrow we will consider de-escalating steroids. If she still feels like her breathing is at baseline we may be able to discharge her home. (2) Chronic hypoxemic respiratory failure Is this a current diagnosis for this admission?: Yes Plan: Stable on her usual level of oxygen support (3) Acute bronchitis Qualifiers: Bronchitis organism: unspecified organism Qualified Code(s): J20.9 - Acute bronchitis, unspecified Is this a current diagnosis for this admission?: Yes Plan: She is on some antibiotics in addition to the other treatments listed above. - Time Time Spent with patient: 15-24 minutes
[2019-06-23 19:04] LABS: APPEARANCE,URINE CLEAR; BILIRUBIN,URINE NEGATIVE (NEGATIVE); COLOR,URINE STRAW; GLUCOSE, URINE 150 mg/dL (NEGATIVE); KETONES,URINE NEGATIVE (NEGATIVE); LEUKOCYTE ESTERASE,URINE NEGATIVE (NEGATIVE); NITRITE,URINE NEGATIVE (NEGATIVE); PROTEIN,URINE NEGATIVE (NEGATIVE); URINE SPECIFIC GRAVITY 1.005; UROBILINOGEN,URINE NEGATIVE mg/dL (<2.0)
[2019-06-23 19:08] LABS: URINE AMPHETAMINES SCREEN NEGATIVE; URINE BARBITURATES SCREEN NEGATIVE; URINE BENZODIAZEPINES SCREEN NEGATIVE; URINE COCAINE SCREEN NEGATIVE; URINE MARIJUANA (THC) SCREEN NEGATIVE; URINE METHADONE SCREEN NEGATIVE; URINE PHENCYCLIDINE SCREEN NEGATIVE
[2019-06-24] MEDS: IPRATROPIUM/ALBUTEROL 0.5-2.5 MG/3 ML AMPUL NEB SCH ×4 (02:19→21:31)
[2019-06-24] MEDS: METHYLPREDNISOLONE INJ 125 MG/2 ML SDV IV SCH ×3 (05:24→23:09)
[2019-06-24] MEDS: HEPARIN SOD (PORCINE) 5,000 UNIT/ML 1 ML VIAL SUBCUT SCH ×3 (05:25→23:08)
[2019-06-24] MEDS: PANTOPRAZOLE SODIUM 40 MG TABLET.DR PO SCH ×2 (05:25→18:11)
[2019-06-24] MEDS: FLUTICASONE NASAL SPRAY 50 MCG/SPRY 120 SPRAY/16 GM NASL SCH ×2 (09:12→23:00)
[2019-06-24] MEDS: CEFTRIAXONE 1 GM/D5W RTU 1 GM/50 ML RTUPB IV SCH (09:13)
[2019-06-24] MEDS: AZITHROMYCIN 500 MG in DEXTROSE 5%-WATER 250 ML IV SCH (13:03)
[2019-06-24] MEDS: ACETAMINOPHEN 325 MG TABLET PO PRN (15:23)
--- NOTE | 2019-06-24 15:50 | PDOC PROGRESS REPORT ---
Subjective Progress Note for:: 06/24/19 Subjective:: No adverse events overnight. No new complaints. Vital signs been stable. Eating and drinking without difficulty. She says he feels like her breathing is at its baseline. No fevers. Reason For Visit: COPD EXACERBATION,PNEUMONIA Physical Exam Vital Signs: Temp Pulse Resp BP Pulse Ox 97.5 F 92 16 139/73 H 98 06/24/19 12:00 06/24/19 14:40 06/24/19 14:40 06/24/19 12:00 06/24/19 14:40 Intake & Output 06/23/19 06/24/19 06/25/19 06:59 06:59 06:59 Intake Total 50 1700 300 Output Total 0 790 Balance 50 910 300 Weight 38.9 kg 42 kg General appearance: PRESENT: no acute distress, cooperative, disheveled, thin Respiratory exam: PRESENT: decreased breath sounds, prolonged expiratory phas, symmetrical, other - Increased AP chest diameter. ABSENT: accessory muscle use, chest wall tenderness, crackles, rhonchi, tachypnea, unlabored, wheezes Cardiovascular exam: PRESENT: RRR, +S1, +S2 Pulses: PRESENT: normal carotid pulses Vascular exam: PRESENT: normal capillary refill GI/Abdominal exam: PRESENT: normal bowel sounds, soft. ABSENT: distended, guarding, rebound, tenderness Extremities exam: ABSENT: clubbing, pedal edema Musculoskeletal exam: PRESENT: normal inspection. ABSENT: deformity Neurological exam: PRESENT: alert, awake, oriented to person, oriented to place, oriented to situation Psychiatric exam: PRESENT: appropriate affect, normal mood Skin exam: PRESENT: dry, warm Results Laboratory Results: 06/23/19 05:08 06/23/19 05:08 06/23/19 18:35 Urine Color STRAW Urine Appearance CLEAR Urine pH 7.0 Ur Specific [place] 1.005 Urine Protein NEGATIVE Urine Glucose (UA) 150 H Urine Ketones NEGATIVE Urine Blood NEGATIVE Urine Nitrite NEGATIVE Ur Leukocyte Esterase NEGATIVE Urine WBC (Auto) 1 Urine RBC (Auto) 0 06/22/19 20:32 Troponin I < 0.012 Impressions: Chest X-Ray 06/22/19 19:49 IMPRESSION: No acute disease. copyright 2010 [email or web address]- All Rights Reserved Assessment and Plan - Diagnosis (1) COPD exacerbation Is this a current diagnosis for this admission?: Yes Plan: We will de-escalate her steroids down to prednisone. Continue bronchodilators a nd antibiotics. (2) Chronic hypoxemic respiratory failure Is this a current diagnosis for this admission?: Yes Plan: Stable on her usual level of oxygen support (3) Acute bronchitis Qualifiers: Bronchitis organism: unspecified organism Qualified Code(s): J20.9 - Acute bronchitis, unspecified Is this a current diagnosis for this admission?: Yes Plan: She is on some antibiotics in addition to the other treatments listed above. (4) Positive blood culture Is this a current diagnosis for this admission?: Yes Plan: She had one blood culture turned positive before we were going to discharge her. Going to wait and see if it is a contaminant before we discharge. - Time Time Spent with patient: 15-24 minutes
[2019-06-24] MEDS: GUAIFENESIN 600 MG TABLET.SA PO SCH (23:09)
[2019-06-25] MEDS: IPRATROPIUM/ALBUTEROL 0.5-2.5 MG/3 ML AMPUL NEB SCH ×4 (02:08→20:01)
[2019-06-25] MEDS: HEPARIN SOD (PORCINE) 5,000 UNIT/ML 1 ML VIAL SUBCUT SCH ×3 (06:19→21:53)
[2019-06-25] MEDS: METHYLPREDNISOLONE INJ 125 MG/2 ML SDV IV SCH ×3 (06:20→21:53)
[2019-06-25] MEDS: PANTOPRAZOLE SODIUM 40 MG TABLET.DR PO SCH ×2 (06:20→17:08)
[2019-06-25] MEDS: CEFTRIAXONE 1 GM/D5W RTU 1 GM/50 ML RTUPB IV SCH (10:29)
[2019-06-25] MEDS: FLUTICASONE NASAL SPRAY 50 MCG/SPRY 120 SPRAY/16 GM NASL SCH ×2 (10:29→21:48)
[2019-06-25] MEDS: GUAIFENESIN 600 MG TABLET.SA PO SCH ×2 (10:30→21:54)
[2019-06-25] MEDS: AZITHROMYCIN 500 MG in DEXTROSE 5%-WATER 250 ML IV SCH (11:57)
--- NOTE | 2019-06-25 12:35 | PDOC PROGRESS REPORT ---
Subjective Progress Note for:: 06/25/19 Subjective:: No adverse events overnight. No new complaints. Vital signs been stable. No fevers. Breathing feels like its normal for her. Reason For Visit: COPD EXACERBATION,PNEUMONIA Physical Exam Vital Signs: Temp Pulse Resp BP Pulse Ox 98.7 F 90 20 138/77 H 100 06/25/19 11:12 06/25/19 11:12 06/25/19 11:12 06/25/19 11:12 06/25/19 11:12 Intake & Output 06/24/19 06/25/19 06/26/19 06:59 06:59 06:59 Intake Total 1700 2160 50 Output Total 790 Balance 910 2160 50 Weight 42 kg 42 kg General appearance: PRESENT: no acute distress, cooperative, disheveled, thin, poor dentition Respiratory exam: PRESENT: decreased breath sounds, prolonged expiratory phas, symmetrical, other - Increased AP chest diameter. ABSENT: accessory muscle use, chest wall tenderness, crackles, rhonchi, tachypnea, unlabored, wheezes Cardiovascular exam: PRESENT: RRR, +S1, +S2 Pulses: PRESENT: normal carotid pulses Vascular exam: PRESENT: normal capillary refill GI/Abdominal exam: PRESENT: normal bowel sounds, soft. ABSENT: distended, guarding, rebound, tenderness Extremities exam: ABSENT: clubbing, pedal edema Musculoskeletal exam: PRESENT: normal inspection. ABSENT: deformity Neurological exam: PRESENT: alert, awake, oriented to person, oriented to place, oriented to situation Psychiatric exam: PRESENT: appropriate affect, normal mood Skin exam: PRESENT: dry, warm Results Laboratory Results: 06/23/19 05:08 06/23/19 05:08 06/22/19 20:32 Troponin I < 0.012 Impressions: Chest X-Ray 06/22/19 19:49 IMPRESSION: No acute disease. copyright 2010 [employer]- All Rights Reserved Assessment and Plan - Diagnosis (1) COPD exacerbation Is this a current diagnosis for this admission?: Yes Plan: We de-escalated her steroids down to prednisone. Continue bronchodilators and antibiotics. (2) Chronic hypoxemic respiratory failure Is this a current diagnosis for this admission?: Yes Plan: Stable on her usual level of oxygen support (3) Acute bronchitis Qualifiers: Bronchitis organism: unspecified organism Qualified Code(s): J20.9 - Acute bronchitis, unspecified Is this a current diagnosis for this admission?: Yes Plan: She is on some antibiotics in addition to the other treatments listed above. (4) Positive blood culture Is this a current diagnosis for this admission?: Yes Plan: 1 of the organisms is still pending, but the other is a Streptococcus mitis. She does have very poor dentition, so it is possible it could have gotten into the bloodstream in this manner. Were waiting for the other organism to come out. Streptococcus mitis does have an association with endocarditis so we will keep her on antibiotics and send her for a CORRINE. - Time Time Spent with patient: 25-34 minutes
[2019-06-25] MEDS: ACETAMINOPHEN 325 MG TABLET PO PRN (17:11)
[2019-06-26] MEDS: IPRATROPIUM/ALBUTEROL 0.5-2.5 MG/3 ML AMPUL NEB SCH ×4 (02:02→20:08)
[2019-06-26] MEDS: PANTOPRAZOLE SODIUM 40 MG TABLET.DR PO SCH ×2 (05:53→17:11)
[2019-06-26] MEDS: HEPARIN SOD (PORCINE) 5,000 UNIT/ML 1 ML VIAL SUBCUT SCH ×3 (05:53→21:29)
[2019-06-26] MEDS: METHYLPREDNISOLONE INJ 125 MG/2 ML SDV IV SCH ×3 (05:53→21:29)
[2019-06-26] MEDS: GUAIFENESIN 600 MG TABLET.SA PO SCH ×2 (10:30→21:29)
[2019-06-26] MEDS: AZITHROMYCIN 500 MG in DEXTROSE 5%-WATER 250 ML IV SCH (10:30)
[2019-06-26] MEDS: CEFTRIAXONE 1 GM/D5W RTU 1 GM/50 ML RTUPB IV SCH (10:30)
[2019-06-26] MEDS: FLUTICASONE NASAL SPRAY 50 MCG/SPRY 120 SPRAY/16 GM NASL SCH ×2 (10:31→21:29)
--- NOTE | 2019-06-26 15:16 | PDOC PROGRESS REPORT ---
Subjective Progress Note for:: 06/26/19 Subjective:: No adverse events overnight. No new complaints. Vital signs been stable. He is on her usual level of oxygen support. No fevers. Reason For Visit: COPD EXACERBATION,PNEUMONIA Physical Exam Vital Signs: Temp Pulse Resp BP Pulse Ox 98.5 F 98 18 145/78 H 98 06/26/19 11:24 06/26/19 14:10 06/26/19 14:10 06/26/19 11:24 06/26/19 14:10 Intake & Output 06/25/19 06/26/19 06/27/19 06:59 06:59 06:59 Intake Total 2160 2824 900 Balance 2160 2824 900 Weight 42 kg 42.6 kg General appearance: PRESENT: no acute distress, cooperative, disheveled, thin, poor dentition Respiratory exam: PRESENT: decreased breath sounds, prolonged expiratory phas, symmetrical, other - Increased AP chest diameter. ABSENT: accessory muscle use, chest wall tenderness, crackles, rhonchi, tachypnea, unlabored, wheezes Cardiovascular exam: PRESENT: RRR, +S1, +S2 Pulses: PRESENT: normal carotid pulses Vascular exam: PRESENT: normal capillary refill GI/Abdominal exam: PRESENT: normal bowel sounds, soft. ABSENT: distended, guarding, rebound, tenderness Extremities exam: ABSENT: clubbing, pedal edema Musculoskeletal exam: PRESENT: normal inspection. ABSENT: deformity Neurological exam: PRESENT: alert, awake, oriented to person, oriented to place, oriented to situation Psychiatric exam: PRESENT: appropriate affect, normal mood Skin exam: PRESENT: dry, warm Results Laboratory Results: 06/23/19 05:08 06/23/19 05:08 06/22/19 20:32 Troponin I < 0.012 Impressions: Chest X-Ray 06/22/19 19:49 IMPRESSION: No acute disease. copyright 2010 [employer]- All Rights Reserved Assessment and Plan - Diagnosis (1) COPD exacerbation Is this a current diagnosis for this admission?: Yes Plan: We de-escalated her steroids down to prednisone. Continue bronchodilators and antibiotics. (2) Chronic hypoxemic respiratory failure Is this a current diagnosis for this admission?: Yes Plan: Stable on her usual level of oxygen support (3) Acute bronchitis Qualifiers: Bronchitis organism: unspecified organism Qualified Code(s): J20.9 - Acute bronchitis, unspecified Is this a current diagnosis for this admission?: Yes Plan: She is on some antibiotics in addition to the other treatments listed above. (4) Positive blood culture Is this a current diagnosis for this admission?: Yes Plan: Of ordered a transthoracic echocardiogram as Dr. Cardona requested. If that gives us the information that were looking for, we will have to send her to [place] for CORRINE. If it does not give us the information looking for, the CORRINE is still arranged, likely for Wednesday. - Time Time Spent with patient: 15-24 minutes
[2019-06-27] MEDS: HYDRALAZINE HCL INJ/PF 20 MG/1 ML SDV IV PRN ×2 (00:13→08:32)
[2019-06-27] MEDS: ACETAMINOPHEN 325 MG TABLET PO PRN (01:55)
[2019-06-27] MEDS: IPRATROPIUM/ALBUTEROL 0.5-2.5 MG/3 ML AMPUL NEB SCH ×4 (02:29→20:47)
[2019-06-27] MEDS: PANTOPRAZOLE SODIUM 40 MG TABLET.DR PO SCH ×2 (06:44→18:17)
[2019-06-27] MEDS: METHYLPREDNISOLONE INJ 125 MG/2 ML SDV IV SCH ×3 (06:45→21:28)
[2019-06-27] MEDS: HEPARIN SOD (PORCINE) 5,000 UNIT/ML 1 ML VIAL SUBCUT SCH ×3 (06:45→21:31)
--- NOTE | 2019-06-27 07:59 | Progress Note Acknowledgement ---
Progress Note Acknowledgement Progess Note Acknowledgement: I, the undersigned member of the medical staff with appropriate privileges and with supervisory authority over [Rajesh Pedersen], a dependent practice allied health professional, acknowledge that I have reviewed the progress notes entered on this patient, and in my professional judgment believe that the assessment made and/or any care evidenced was appropriate
--- NOTE | 2019-06-27 08:01 | PDOC PROGRESS REPORT ---
Subjective Progress Note for:: 06/27/19 Subjective:: 06/27/2019-no complaints this a.m. Reason For Visit: COPD EXACERBATION,PNEUMONIA Physical Exam Vital Signs: Temp Pulse Resp BP Pulse Ox 97.5 F 91 12 169/94 H 100 06/27/19 03:12 06/27/19 07:00 06/27/19 03:12 06/27/19 03:12 06/27/19 03:12 Intake & Output 06/26/19 06/27/19 06/28/19 06:59 06:59 06:59 Intake Total 2824 1260 Balance 2824 1260 Weight 42.6 kg 43.1 kg General appearance: PRESENT: no acute distress, well-developed, well-nourished Neck exam: ABSENT: carotid bruit, JVD, lymphadenopathy, thyromegaly Respiratory exam: PRESENT: decreased breath sounds, symmetrical, unlabored Cardiovascular exam: PRESENT: RRR. ABSENT: diastolic murmur, rubs, systolic murmur Pulses: PRESENT: normal dorsalis pedis pul GI/Abdominal exam: PRESENT: normal bowel sounds, soft. ABSENT: distended, guarding, mass, organolmegaly, rebound, tenderness Extremities exam: PRESENT: full ROM. ABSENT: calf tenderness, clubbing, pedal edema Neurological exam: PRESENT: alert, awake, oriented to person, oriented to place, oriented to time, oriented to situation, CN II-XII grossly intact. ABSENT: motor sensory deficit Psychiatric exam: PRESENT: appropriate affect, normal mood. ABSENT: homicidal ideation, suicidal ideation Skin exam: PRESENT: dry, intact, warm. ABSENT: cyanosis, rash Results Laboratory Results: 06/23/19 05:08 06/23/19 05:08 06/22/19 20:32 Troponin I < 0.012 Impressions: Chest X-Ray 06/22/19 19:49 IMPRESSION: No acute disease. copyright 2010 [email or web address]- All Rights Reserved Assessment and Plan - Diagnosis (1) COPD exacerbation Is this a current diagnosis for this admission?: Yes Plan: We de-escalated her steroids down to prednisone. Continue bronchodilators and antibiotics. 06/27/2019-continue bronchodilators and antibiotics she continues on oral prednisone. Continue supportive measures as necessary (2) Chronic hypoxemic respiratory failure Is this a current diagnosis for this admission?: Yes Plan: Stable on her usual level of oxygen support 06/27/2019-stable at this time. Patient continues on supportive oxygen. We will continue to follow (3) Acute bronchitis Qualifiers: Bronchitis organism: unspecified organism Qualified Code(s): J20.9 - Acute bronchitis, unspecified Is this a current diagnosis for this admission?: Yes Plan: She is on some antibiotics in addition to the other treatments listed above. 06/27/2019-patient continues on antibiotics, bronchodilators and steroids. (4) Positive blood culture Is this a current diagnosis for this admission?: Yes Plan: Of ordered a transthoracic echocardiogram as Dr. Cardona requested. If that gives us the information that were looking for, we will have to send her to [place] for CORRINE. If it does not give us the information looking for, the CORRINE is still arranged, likely for Wednesday. 06/27/2019-most likely will go for CORRINE on Wednesday. We will continue to follow - Time Time Spent with patient: 15-24 minutes - Inpatient Certification Based on my medical assessment, after consideration of the patient's comorbidities, presenting symptoms, or acuity I expect that the services needed warrant INPATIENT care.: Yes I certify that my determination is in accordance with my understanding of Medicare's requirements for reasonable and necessary INPATIENT services [42 CFR 412.3e].: Yes Medical Necessity: Other - CORRINE, IV antibiotics
[2019-06-27] MEDS ORDERED: LISINOPRIL 10 MG TABLET PO SCH (10:00)
[2019-06-27] MEDS: GUAIFENESIN 600 MG TABLET.SA PO SCH ×2 (10:02→21:30)
[2019-06-27] MEDS: CEFTRIAXONE 1 GM/D5W RTU 1 GM/50 ML RTUPB IV SCH (10:02)
[2019-06-27] MEDS: AZITHROMYCIN 500 MG in DEXTROSE 5%-WATER 250 ML IV SCH (10:06)
[2019-06-27] MEDS: FLUTICASONE NASAL SPRAY 50 MCG/SPRY 120 SPRAY/16 GM NASL SCH ×2 (10:07→21:38)
[2019-06-27] MEDS: METOPROLOL SUCCINATE 25 MG TAB.SR.24H PO SCH ×2 (13:24→21:30)
--- NOTE | 2019-06-27 21:09 | XCELERA REPORT ---
[address] [address] Transthoracic Echocardiogram Report Name: BALJIT FARRIS Age: 48 yrs Gender: Female : 1970 Patient Status: Inpatient Patient Location: [address] [place], [place] [address] Study Date: 06/27/2019 09:19 AM Height: 64 in Weight: 93 lb BSA: 1.4 m2 Procedure: A two-dimensional transthoracic echocardiogram with color flow and Doppler was performed. Study Quality: Poor. Reason For Study: Streptococcal bacteremia, eval for endocarditis History: Streptococcal bacteremia, eval for endocarditis. Ordering Physician: LUPE ALMENDAREZ Performed By: Niya Jasmine Interpretation Summary No gross vegetatations seen.But if clinical suspicion is high recommend CORRINE. The left ventricle is normal in size. There is normal left ventricular wall thickness. The left ventricular ejection fraction is within normal limits. LV EF is 65% Doppler measurements suggest normal left ventricular diastolic function The left ventricular wall motion is normal. There is no thrombus. Cannot evaluate for ASD,VSD , or PFO. The right ventricle is normal in size and function. The right atrium is normal. The left atrial size is normal. There is no evidence of mitral valve prolapse. There is no vegetation seen on the mitral valve. There is no mitral valve stenosis. There is a trace amount of mitral regurgitation There is no aortic valvular vegetation. There is no aortic valve stenosis No aortic regurgitation is present. There is no tricuspid valve vegetation. There is no tricuspid stenosis. There is a trace amount of tricuspid regurgitation Unabe to calculate RVSP due to linsufficient of TR jet. There is no vegetation on the pulmonic valve. There is no pulmonic valvular stenosis. There is a trace amount of pulmonic regurgitation The aortic root is normal size. The inferior vena cava appeared normal and decreased > 50% with respiration (RAP 5-10 mmHg) There is no pericardial effusion. No gross vegetatations seen.But if clinical suspicion is high recommend CORRINE. MMode/2D Measurements & Calculations RVDd: 2.7 cm LVIDd: 3.8 cm FS: 33.9 % Ao root diam: 2.4 cm IVSd: 0.70 cm LVIDs: 2.5 cm EDV(Teich): 60.1 ml Ao root area: 4.5 cm2 LVPWd: 0.78 cm ESV(Teich): 21.9 ml EF(Teich): 63.6 % Doppler Measurements & Calculations MV E max martha: MV dec slope: Ao V2 max: LV V1 max P.8 cm/sec 1228 cm/sec2 180.0 cm/sec 6.5 mmHg MV A max martha: MV dec time: Ao max PG: LV V1 max: 95.9 cm/sec 0.10 sec 13.0 mmHg 127.6 cm/sec MV E/A: 1.2 PA V2 max: 106.4 cm/sec PA max P.5 mmHg Left Ventricle The left ventricle is normal in size. There is normal left ventricular wall thickness. The left ventricular ejection fraction is within normal limits. LV EF is 65%. Doppler measurements suggest normal left ventricular diastolic function. The left ventricular wall motion is normal. There is no thrombus. Cannot evaluate for ASD,VSD , or PFO. Right Ventricle The right ventricle is normal in size and function. Atria The right atrium is normal. The left atrial size is normal. Mitral Valve There is no evidence of mitral valve prolapse. There is no vegetation seen on the mitral valve. There is no mitral valve stenosis. There is a trace amount of mitral regurgitation. Aortic Valve There is no aortic valvular vegetation. There is no aortic valve stenosis. No aortic regurgitation is present. Tricuspid Valve There is no tricuspid valve vegetation. There is no tricuspid stenosis. There is a trace amount of tricuspid regurgitation. Unabe to calculate RVSP due to linsufficient of TR jet. Pulmonic Valve There is no vegetation on the pulmonic valve. There is no pulmonic valvular stenosis. There is a trace amount of pulmonic regurgitation. Great Vessels The aortic root is normal size. The inferior vena cava appeared normal and decreased > 50% with respiration (RAP 5-10 mmHg). Effusions There is no pericardial effusion. : LUPE ALMENDAREZ Lakshmi
[2019-06-27] MEDS: ESCITALOPRAM OXALATE 10 MG TABLET PO SCH (21:30)
[2019-06-28] MEDS: IPRATROPIUM/ALBUTEROL 0.5-2.5 MG/3 ML AMPUL NEB SCH ×4 (01:49→20:27)
[2019-06-28] MEDS: PANTOPRAZOLE SODIUM 40 MG TABLET.DR PO SCH ×2 (06:06→17:00)
[2019-06-28] MEDS: HEPARIN SOD (PORCINE) 5,000 UNIT/ML 1 ML VIAL SUBCUT SCH ×3 (06:06→22:01)
[2019-06-28] MEDS: METHYLPREDNISOLONE INJ 125 MG/2 ML SDV IV SCH ×3 (06:06→22:00)
[2019-06-28 07:59] LABS: HEMATOCRIT 34.2 % (36.0-47.0); HEMOGLOBIN 11.5 g/dL (12.0-15.5); MEAN CORPUSCULAR HEMOGLOBIN 31.1 pg (27.0-33.4); MEAN CORPUSCULAR HGB CONC 33.5 g/dL (32.0-36.0); MEAN CORPUSCULAR VOLUME 93 fl (80-97); PLATELET COUNT 253 10^3/uL (150-450); RED BLOOD COUNT 3.68 10^6/uL (3.72-5.28); RED CELL DISTRIBUTION WIDTH 14.5 % (11.5-14.0); WHITE BLOOD COUNT 7.8 10^3/uL (4.0-10.5)
[2019-06-28 08:29] LABS: ANION GAP 7 (5-19); BLOOD UREA NITROGEN 17 mg/dL (7-20); CALCIUM 9.2 mg/dL (8.4-10.2); CARBON DIOXIDE 34 mmol/L (22-30); CHLORIDE 96 mmol/L (98-107); GLUCOSE 120 mg/dL (75-110); POTASSIUM 4.5 mmol/L (3.6-5.0)
--- NOTE | 2019-06-28 09:04 | PDOC PROGRESS REPORT ---
Subjective Progress Note for:: 06/28/19 Subjective:: 06/27/2019-no complaints this a.m. 06/28/2019-continue to cough and wheeze Reason For Visit: PNEUMONIA, BACTREMIA Physical Exam Vital Signs: Temp Pulse Resp BP Pulse Ox 98.6 F 86 18 152/87 H 95 06/28/19 03:25 06/28/19 08:01 06/28/19 08:01 06/28/19 03:25 06/28/19 08:01 Intake & Output 06/27/19 06/28/19 06/29/19 06:59 06:59 06:59 Intake Total 1260 2236 Output Total 1000 Balance 1260 1236 Weight 43.1 kg 43.1 kg General appearance: PRESENT: no acute distress, well-developed, well-nourished Head exam: PRESENT: atraumatic, normocephalic Eye exam: PRESENT: conjunctiva pink, EOMI, PERRLA. ABSENT: scleral icterus Ear exam: PRESENT: normal external ear exam Mouth exam: PRESENT: moist, tongue midline Neck exam: ABSENT: carotid bruit, JVD, lymphadenopathy, thyromegaly Respiratory exam: PRESENT: decreased breath sounds, symmetrical, tachypnea, unlabored, wheezes. ABSENT: rales, rhonchi Cardiovascular exam: PRESENT: RRR. ABSENT: diastolic murmur, rubs, systolic murmur Pulses: PRESENT: normal dorsalis pedis pul Vascular exam: PRESENT: normal capillary refill GI/Abdominal exam: PRESENT: normal bowel sounds, soft. ABSENT: distended, guarding, mass, organolmegaly, rebound, tenderness Rectal exam: PRESENT: deferred Extremities exam: PRESENT: full ROM. ABSENT: calf tenderness, clubbing, pedal edema Neurological exam: PRESENT: alert, awake, oriented to person, oriented to place, oriented to time, oriented to situation, CN II-XII grossly intact. ABSENT: motor sensory deficit Psychiatric exam: PRESENT: appropriate affect, normal mood. ABSENT: homicidal ideation, suicidal ideation Skin exam: PRESENT: dry, intact, warm. ABSENT: cyanosis, rash Results Laboratory Results: 06/28/19 07:15 06/28/19 07:15 06/28/19 06/28/19 07:15 07:15 WBC 7.8 RBC 3.68 L Hgb 11.5 L Hct 34.2 L MCV 93 MCH 31.1 MCHC 33.5 RDW 14.5 H Plt Count 253 Sodium 136.7 L Potassium 4.5 Chloride 96 L Carbon Dioxide 34 H Anion Gap 7 BUN 17 Creatinine 0.57 Est GFR ( Amer) > 60 Glucose 120 H Calcium 9.2 06/23/19 05:16 Blood Blood Culture - Final NO GROWTH IN 5 DAYS 06/22/19 22:30 Blood Blood Culture - Final Streptococcus Mitis Micrococcus Species 06/22/19 20:32 Troponin I < 0.012 Impressions: Chest X-Ray 06/22/19 19:49 IMPRESSION: No acute disease. copyright 2010 [employer]- All Rights Reserved Assessment and Plan - Diagnosis (1) COPD exacerbation Is this a current diagnosis for this admission?: Yes Plan: We de-escalated her steroids down to prednisone. Continue bronchodilators and antibiotics. 06/27/2019-continue bronchodilators and antibiotics she continues on oral prednisone. Continue supportive measures as necessary 06/28/2019-continue bronchodilators and oral prednisone. I have DC'd IV azithromycin we will continue Rocephin at this time. Continue supportive measures as necessary including oxygen (2) Chronic hypoxemic respiratory failure Is this a current diagnosis for this admission?: Yes Plan: Stable on her usual level of oxygen support 06/27/2019-stable at this time. Patient continues on supportive oxygen. We will continue to follow 06/28/2019-stable at this time continues on supportive oxygen (3) Acute bronchitis Qualifiers: Bronchitis organism: unspecified organism Qualified Code(s): J20.9 - Acute bronchitis, unspecified Is this a current diagnosis for this admission?: Yes Plan: She is on some antibiotics in addition to the other treatments listed above. 06/27/2019-patient continues on antibiotics, bronchodilators and steroids. 06/28/2019-continue bronchodilators and steroids I have DC'd IV azithromycin. Patient will continue on Rocephin (4) Positive blood culture Is this a current diagnosis for this admission?: Yes Plan: Of ordered a transthoracic echocardiogram as Dr. Cardona requested. If that gives us the information that were looking for, we will have to send her to [place] for CORRINE. If it does not give us the information looking for, the CORRINE is still arranged, likely for Wednesday. 06/27/2019-most likely will go for CORRINE on Wednesday. We will continue to follow 06/28/2019-patient had echocardiogram that showed no vegetation and I have no high clinical concern for vegetation at this time. Patient is not used IV drugs however she does have poor dentition which could lead to an vegetation we will continue to follow and have patient get a outpatient CORRINE if needed. For now continue antibiotics as patient does have a micrococcus species that is susceptible to Rocephin (5) Hypertension Is this a current diagnosis for this admission?: Yes Plan: 06/28/2019-patient remains mildly elevated with systolic in the 150s. I have increased her lisinopril from 10 mg to 20 mg daily - Time Time Spent with patient: 15-24 minutes - Inpatient Certification Based on my medical assessment, after consideration of the patient's comorbidities, presenting symptoms, or acuity I expect that the services needed warrant INPATIENT care.: Yes I certify that my determination is in accordance with my understanding of Medicare's requirements for reasonable and necessary INPATIENT services [42 CFR 412.3e].: Yes Medical Necessity: Other - IV antibiotics, supportive care
[2019-06-28] MEDS: GUAIFENESIN 600 MG TABLET.SA PO SCH ×2 (13:44→22:00)
[2019-06-28] MEDS: METOPROLOL SUCCINATE 25 MG TAB.SR.24H PO SCH ×2 (13:44→22:00)
[2019-06-28] MEDS: CEFTRIAXONE 1 GM/D5W RTU 1 GM/50 ML RTUPB IV SCH (13:45)
[2019-06-28] MEDS: LISINOPRIL 10 MG TABLET PO SCH (13:45)
[2019-06-28] MEDS: FLUTICASONE NASAL SPRAY 50 MCG/SPRY 120 SPRAY/16 GM NASL SCH ×2 (13:46→22:01)
[2019-06-28] MEDS: ESCITALOPRAM OXALATE 10 MG TABLET PO SCH (22:00)
[2019-06-29] MEDS: IPRATROPIUM/ALBUTEROL 0.5-2.5 MG/3 ML AMPUL NEB SCH ×4 (02:38→20:23)
[2019-06-29 05:05] LABS: HEMATOCRIT 33.6 % (36.0-47.0); HEMOGLOBIN 11.4 g/dL (12.0-15.5); MEAN CORPUSCULAR HEMOGLOBIN 31.4 pg (27.0-33.4); MEAN CORPUSCULAR HGB CONC 33.9 g/dL (32.0-36.0); MEAN CORPUSCULAR VOLUME 93 fl (80-97); PLATELET COUNT 245 10^3/uL (150-450); RED BLOOD COUNT 3.62 10^6/uL (3.72-5.28); RED CELL DISTRIBUTION WIDTH 14.7 % (11.5-14.0); WHITE BLOOD COUNT 9.2 10^3/uL (4.0-10.5)
[2019-06-29 05:25] LABS: BLOOD UREA NITROGEN 25 mg/dL (7-20); CARBON DIOXIDE 35 mmol/L (22-30); GLUCOSE 129 mg/dL (75-110); POTASSIUM 4.5 mmol/L (3.6-5.0)
[2019-06-29 05:34] LABS: ANION GAP 6 (5-19); CHLORIDE 98 mmol/L (98-107)
[2019-06-29] MEDS: METHYLPREDNISOLONE INJ 125 MG/2 ML SDV IV SCH ×3 (06:25→21:42)
[2019-06-29] MEDS: HEPARIN SOD (PORCINE) 5,000 UNIT/ML 1 ML VIAL SUBCUT SCH ×3 (06:25→21:43)
[2019-06-29] MEDS: PANTOPRAZOLE SODIUM 40 MG TABLET.DR PO SCH ×2 (06:25→16:47)
--- NOTE | 2019-06-29 08:34 | PDOC PROGRESS REPORT ---
Subjective Progress Note for:: 06/29/19 Subjective:: 06/27/2019-no complaints this a.m. 06/28/2019-continue to cough and wheeze 06/29/2019-continues cough and wheeze, get short of breath walking to the bathroom Reason For Visit: PNEUMONIA, BACTREMIA Physical Exam Vital Signs: Temp Pulse Resp BP Pulse Ox 98.4 F 89 20 164/97 H 98 06/29/19 07:57 06/29/19 07:57 06/29/19 07:57 06/29/19 07:57 06/29/19 07:57 Intake & Output 06/28/19 06/29/19 06/30/19 06:59 06:59 06:59 Intake Total 2236 1496 Output Total 1000 Balance 1236 1496 Weight 43.1 kg 43.2 kg General appearance: PRESENT: no acute distress, well-developed, well-nourished Head exam: PRESENT: atraumatic, normocephalic Eye exam: PRESENT: conjunctiva pink, EOMI, PERRLA. ABSENT: scleral icterus Ear exam: PRESENT: normal external ear exam Mouth exam: PRESENT: moist, tongue midline Neck exam: ABSENT: carotid bruit, JVD, lymphadenopathy, thyromegaly Respiratory exam: PRESENT: symmetrical, tachypnea, unlabored, wheezes, other - Nonproductive cough. ABSENT: rales, rhonchi Cardiovascular exam: PRESENT: RRR. ABSENT: diastolic murmur, rubs, systolic murmur Pulses: PRESENT: normal dorsalis pedis pul Vascular exam: PRESENT: normal capillary refill GI/Abdominal exam: PRESENT: normal bowel sounds, soft. ABSENT: distended, guarding, mass, organolmegaly, rebound, tenderness Rectal exam: PRESENT: deferred Extremities exam: PRESENT: full ROM. ABSENT: calf tenderness, clubbing, pedal edema Neurological exam: PRESENT: alert, awake, oriented to person, oriented to place, oriented to time, oriented to situation, CN II-XII grossly intact. ABSENT: motor sensory deficit Psychiatric exam: PRESENT: appropriate affect, normal mood. ABSENT: homicidal ideation, suicidal ideation Skin exam: PRESENT: dry, intact, warm. ABSENT: cyanosis, rash Results Laboratory Results: 06/29/19 04:33 06/29/19 04:33 06/28/19 06/29/1906/29/19 07:15 04:33 04:33 WBC 9.2 RBC 3.62 L Hgb 11.4 L Hct 33.6 L MCV 93 MCH 31.4 MCHC 33.9 RDW 14.7 H Plt Count 245 Sodium 136.7 L 138.7 Potassium 4.5 4.5 Chloride 96 L 98 Carbon Dioxide 34 H 35 H Anion Gap 7 6 BUN 17 25 H Creatinine 0.57 0.59 Est GFR ( Amer) > 60 > 60 Glucose 120 H 129 H Calcium 9.2 9.0 06/23/19 05:16 Blood Blood Culture - Final NO GROWTH IN 5 DAYS 06/22/19 20:32 Troponin I < 0.012 Impressions: Chest X-Ray 06/22/19 19:49 IMPRESSION: No acute disease. copyright 2010 [employer]- All Rights Reserved Assessment and Plan - Diagnosis (1) COPD exacerbation Is this a current diagnosis for this admission?: Yes Plan: We de-escalated her steroids down to prednisone. Continue bronchodilators and antibiotics. 06/27/2019-continue bronchodilators and antibiotics she continues on oral prednisone. Continue supportive measures as necessary 06/28/2019-continue bronchodilators and oral prednisone. I have DC'd IV azithromycin we will continue Rocephin at this time. Continue supportive measures as necessary including oxygen 06/29/2019-wheeze persist. Nonproductive cough. Continue bronchodilators oral prednisone. Rocephin continues as well supportive measures as necessary including oxygen therapy. (2) Chronic hypoxemic respiratory failure Is this a current diagnosis for this admission?: Yes Plan: Stable on her usual level of oxygen support 06/27/2019-stable at this time. Patient continues on supportive oxygen. We will continue to follow 06/28/2019-stable at this time continues on supportive oxygen 06/29/2019-stable at this time continue supportive O2. (3) Acute bronchitis Qualifiers: Bronchitis organism: unspecified organism Qualified Code(s): J20.9 - Acute bronchitis, unspecified Is this a current diagnosis for this admission?: Yes Plan: She is on some antibiotics in addition to the other treatments listed above. 06/27/2019-patient continues on antibiotics, bronchodilators and steroids. 06/28/2019-continue bronchodilators and steroids I have DC'd IV azithromycin. Patient will continue on Rocephin 06/29/2019-continue bronchodilators and steroids. Patient continues on Rocephin as well. (4) Positive blood culture Is this a current diagnosis for this admission?: Yes Plan: Of ordered a transthoracic echocardiogram as Dr. Cardona requested. If that gives us the information that were looking for, we will have to send her to [facility] for CORRINE. If it does not give us the information looking for, the CORRINE is still arranged, likely for Wednesday. 06/27/2019-most likely will go for CORRINE on Wednesday. We will continue to follow 06/28/2019-patient had echocardiogram that showed no vegetation and I have no high clinical concern for vegetation at this time. Patient is not used IV drugs however she does have poor dentition which could lead to an vegetation we will continue to follow and have patient get a outpatient CORRINE if needed. 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 I have very low suspicion for vegetation we will continue to follow (5) Hypertension Is this a current diagnosis for this admission?: Yes Plan: 06/28/2019-patient remains mildly elevated with systolic in the 150s. I have increased her lisinopril from 10 mg to 20 mg daily 06/29/2019-persistently in the 150s 160s systolic. Added Norvasc 5 mill grams p.o. daily we will continue to follow - Time Time Spent with patient: 15-24 minutes - Inpatient Certification Based on my medical assessment, after consideration of the patient's comorbidities, presenting symptoms, or acuity I expect that the services needed warrant INPATIENT care.: Yes I certify that my determination is in accordance with my understanding of Medicare's requirements for reasonable and necessary INPATIENT services [42 CFR 412.3e].: Yes Medical Necessity: Other - IV antibiotics supportive measures
[2019-06-29] MEDS: CEFTRIAXONE 1 GM/D5W RTU 1 GM/50 ML RTUPB IV SCH (10:10)
[2019-06-29] MEDS: AMLODIPINE BESYLATE 5 MG TABLET PO SCH (10:11)
[2019-06-29] MEDS: LISINOPRIL 10 MG TABLET PO SCH (10:11)
[2019-06-29] MEDS: GUAIFENESIN 600 MG TABLET.SA PO SCH ×2 (10:11→21:42)
[2019-06-29] MEDS: FLUTICASONE NASAL SPRAY 50 MCG/SPRY 120 SPRAY/16 GM NASL SCH ×2 (10:11→21:43)
[2019-06-29] MEDS: METOPROLOL SUCCINATE 25 MG TAB.SR.24H PO SCH ×2 (10:11→21:42)
[2019-06-29] MEDS: ESCITALOPRAM OXALATE 10 MG TABLET PO SCH (21:42)
[2019-06-30] MEDS: IPRATROPIUM/ALBUTEROL 0.5-2.5 MG/3 ML AMPUL NEB SCH ×2 (02:12→07:52)
[2019-06-30] MEDS: HEPARIN SOD (PORCINE) 5,000 UNIT/ML 1 ML VIAL SUBCUT SCH (06:16)
[2019-06-30] MEDS: PANTOPRAZOLE SODIUM 40 MG TABLET.DR PO SCH (06:16)
[2019-06-30] MEDS: METHYLPREDNISOLONE INJ 125 MG/2 ML SDV IV SCH (06:16)
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
[2019-06-30 09:35] VITALS: BP 155/86
[2019-06-30] MEDS: METOPROLOL SUCCINATE 25 MG TAB.SR.24H PO SCH (09:50)
[2019-06-30] MEDS: FLUTICASONE NASAL SPRAY 50 MCG/SPRY 120 SPRAY/16 GM NASL SCH (09:50)
[2019-06-30] MEDS: GUAIFENESIN 600 MG TABLET.SA PO SCH (09:50)
[2019-06-30] MEDS: AMLODIPINE BESYLATE 5 MG TABLET PO SCH (09:51)
[2019-06-30] MEDS: LISINOPRIL 10 MG TABLET PO SCH (09:51)
== END 2019-06-30 13:12 | disposition home or self-care (01) | DRG 190 ==
LOC: ER 19:40 → EH 21:42 → INTOOBSV 21:42 → 4N 22:40 → OBSVTOIN 06-26 11:48
PROVIDERS: ADMIT Internal Medicine; ATTEND Internal Medicine
PROC: 5A09357 Assistance with Respiratory Ventilation, Less than 24 Consecutive Hours, Continuous Positive Airway Pressure (ICD-10-PCS; principal; 2019-06-26)
DX: J44.0 Chronic obstructive pulmonary disease with (acute) lower respiratory infection (principal); J96.02 Acute respiratory failure with hypercapnia; J96.11 Chronic respiratory failure with hypoxia; R78.81 Bacteremia; Z99.81 Dependence on supplemental oxygen; J44.1 Chronic obstructive pulmonary disease with (acute) exacerbation; I10 Essential (primary) hypertension; J30.9 Allergic rhinitis, unspecified; J20.9 Acute bronchitis, unspecified; B95.4 Other streptococcus as the cause of diseases classified elsewhere; I25.2 Old myocardial infarction; Z82.49 Family history of ischemic heart disease and other diseases of the circulatory system; Z88.0 Allergy status to penicillin; Z87.891 Personal history of nicotine dependence; Z79.52 Long term (current) use of systemic steroids
CPT/HCPCS: 36415; 71045; 80048; 80053; 80307; 81001; 82803; 83605; 84484; 85025; 85027; 87040; 87077; 87186; 93005; 93010; 93306; 94660; 94799; G0378; J0360; J0456; J0696; J1644; J2930; J3490; J7060; J7620

== ENCOUNTER 2019-08-31 07:21 | Observation (INO) | payer MEDICAID, OTHER ==
[2019-08-31 07:51] LABS: ABSOLUTE BASOPHILS # (AUTO) 0.1 10^3/uL (0.0-0.2); ABSOLUTE EOSINOPHILS # (AUTO) 0.8 10^3/uL (0.0-0.6); ABSOLUTE LYMPHOCYTES (AUTO) 3.6 10^3/uL (0.5-4.7); ABSOLUTE MONOCYTES (AUTO) 0.9 10^3/uL (0.1-1.4); ABSOLUTE NEUT (AUTO) 7.4 10^3/uL (1.7-8.2); BASOPHILS % (AUTO) 0.4 % (0-2); EOSINOPHILS % (AUTO) 5.9 % (0-6); HEMATOCRIT 36.8 % (36.0-47.0); HEMOGLOBIN 12.5 g/dL (12.0-15.5); LYMPHOCYTES % (AUTO) 28.4 % (13-45); MEAN CORPUSCULAR HGB CONC 34.1 g/dL (32.0-36.0); MEAN CORPUSCULAR VOLUME 94 fl (80-97); MONOCYTES % (AUTO) 7.4 % (3-13); PLATELET COUNT 419 10^3/uL (150-450); RED BLOOD COUNT 3.92 10^6/uL (3.72-5.28); RED CELL DISTRIBUTION WIDTH 14.5 % (11.5-14.0); SEGMENTED NEUTROPHILS % (AUTO) 57.9 % (42-78); TOTAL CELLS COUNTED % (AUTO) 100 %; VENOUS BLOOD BASE EXCESS -0.5 mmol/L; VENOUS BLOOD HCO3 27.4 mmol/L (20-32); VENOUS BLOOD PCO2 59.8 mmHg (35-63); VENOUS BLOOD PH 7.28 (7.30-7.42); WHITE BLOOD COUNT 12.7 10^3/uL (4.0-10.5)
[2019-08-31] MEDS ORDERED: IPRATROPIUM/ALBUTEROL 0.5-2.5 MG/3 ML AMPUL NEB ONE ×2 (07:59→11:40)
[2019-08-31] MEDS ORDERED: METHYLPREDNISOLONE INJ 125 MG/2 ML SDV IV ONE (07:59)
[2019-08-31] MEDS ORDERED: MAGNESIUM SULFATE/D5W 1 GM/100 ML RTUPB IV ONE (08:00)
[2019-08-31 08:14] LABS: ALBUMIN 4.1 g/dL (3.5-5.0); ALKALINE PHOSPHATASE 57 U/L (38-126); ANION GAP 11 (5-19); ASPARTATE AMINO TRANSFERASE 59 U/L (14-36); BILIRUBIN,DIRECT 0.1 mg/dL (0.0-0.4); BILIRUBIN,TOTAL 0.4 mg/dL (0.2-1.3); BLOOD UREA NITROGEN 7 mg/dL (7-20); CARBON DIOXIDE 28 mmol/L (22-30); CHLORIDE 102 mmol/L (98-107); GLUCOSE 139 mg/dL (75-110); POTASSIUM 4.1 mmol/L (3.6-5.0); TOTAL PROTEIN 6.7 g/dL (6.3-8.2)
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
--- NOTE | 2019-08-31 08:40 | RADIOLOGY REPORT (SQ) ---
EXAM DESCRIPTION: CHEST SINGLE VIEW COMPLETED DATE/TIME: 08/31/2019 8:14 am REASON FOR STUDY: SOB COMPARISON: 08/07/2019 NUMBER OF VIEWS: One view. TECHNIQUE: Single frontal radiographic view of the chest acquired. LIMITATIONS: None. FINDINGS: LUNGS AND PLEURA: No opacities, masses or pneumothorax. No pleural effusion. Attenuated bl ood vessels and flattened angela-diaphragms. MEDIASTINUM AND HILAR STRUCTURES: No masses. Contour normal. HEART AND VASCULAR STRUCTURES: Heart normal in size. Normal vasculature. BONES: No acute findings. HARDWARE: None in the chest. OTHER: No other significant finding. IMPRESSION: COPD. NO ACUTE RADIOGRAPHIC FINDING IN THE CHEST. TECHNICAL DOCUMENTATION: JOB ID: [id number] [email or web address]- All Rights Reserved Reading location - IP/workstation name: [email or web address]
[2019-08-31] MEDS ORDERED: IBUPROFEN 600 MG TABLET PO ONE (09:54)
[2019-08-31 10:22] LABS: ARTERIAL BLOOD BASE EXCESS 1.9 mmol/L; ARTERIAL BLOOD FIO2 28%; ARTERIAL BLOOD H2CO3 1.47 mmol/L (1.05-1.35); ARTERIAL BLOOD HCO3 27.9 mmol/L (20-24); ARTERIAL BLOOD O2 SATURATION 97.7 % (94-98); ARTERIAL BLOOD PCO2 48.9 mmHg (35-45); ARTERIAL BLOOD PH 7.37 (7.35-7.45); ARTERIAL BLOOD PO2 105.3 mmHg (80-100); ARTERIAL BLOOD TOTAL CO2 29.4 mmol/L (21-25)
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
--- NOTE | 2019-08-31 22:39 | EKG REPORT ---
SEVERITY:- ABNORMAL ECG - SINUS TACHYCARDIA BORDERLINE RIGHT AXIS DEVIATION NONSPECIFIC T ABNORMALITIES, LATERAL LEADS : Confirmed by: Paula López 31-Aug-2019 22:38:57
[2019-09-01] MEDS ORDERED: PREDNISONE 20 MG TABLET PO ONE (02:30)
[2019-09-01] MEDS: IPRATROPIUM/ALBUTEROL 0.5-2.5 MG/3 ML AMPUL NEB PRN ×2 (02:45→13:47)
[2019-09-01] MEDS ORDERED: DOXYCYCLINE HYCLATE 100 MG TABLET PO ONE (03:00)
[2019-09-01] MEDS: IPRATROPIUM/ALBUTEROL 0.5-2.5 MG/3 ML AMPUL NEB SCH ×2 (07:58→19:46)
[2019-09-01] MEDS: DOXYCYCLINE HYCLATE 100 MG TABLET PO SCH ×2 (11:15→21:47)
[2019-09-01] MEDS: PREDNISONE 20 MG TABLET PO SCH ×2 (11:15→17:39)
[2019-09-01] MEDS: FLUTICASONE NASAL SPRAY 50 MCG/SPRY 120 SPRAY/16 GM NASL SCH ×2 (11:15→21:47)
[2019-09-01] MEDS ORDERED: DIPHENHYDRAMINE HCL 25 MG CAPSULE PO PRN (11:36)
[2019-09-01] MEDS ORDERED: (PENDING PHARMACY ID) (Tiotropium Bromide [Spiriva Handihaler 5 Cap/Kit (18 Mcg/Cap)] 1 CA IH SCH (11:45)
[2019-09-01] MEDS ORDERED: KETOROLAC TROMETHAMINE INJ/PF 30 MG/1 ML SDV IV ONE (13:00)
--- NOTE | 2019-09-01 13:16 | PDOC PROGRESS REPORT ---
Subjective Progress Note for:: 09/01/19 Subjective:: BALJIT FARRIS is a 48 year old female with end-stage COPD who was discharged from this hospital the middle of last month and has been on a long steroid taper ever since he says she has been compliant with her medications and denies smoking currently, but she said that not long ago she was still smoking. She came in by EMS because she woke up short of breath. She did nebulizer treatment and then called EMS. They gave her nebulizer treatment, some Solu-Medrol and some magnesium. She had another nebulizer treatment after she got to the ER. She was back to her baseline. She normally wears 2 L of oxygen continuously, and when she gets up and moves around she turns it up to 3 L. She normally does not walk more than about 30 feet at one stretch before resting. She was back to her baseline in the ER when they got her up and walked her, on 2 L, all the way around the nurses station, 3-4 times longer than the distance she normally walks, and of course she got tachypneic. At this point they are called us to admit. She says she feels back to normal. 09/01/2019. Assumed care today. No acute events overnight. Patient is comfortably sitting in bed, on supplemental oxygen, stating that she still feels short of breath, normal at baseline, on home O2 2 L, denies any fever, chills, nausea, vomiting, diarrhea, constipation or any urinary symptoms. Complaining of headache. Reason For Visit: SHORTNESS OF BREATH Physical Exam Vital Signs: Temp Pulse Resp BP Pulse Ox 98.2 F 99 18 144/79 H 98 09/01/19 00:48 09/01/19 02:46 09/01/19 02:46 09/01/19 00:48 09/01/19 02:46 Intake & Output 08/31/19 09/01/19 09/02/19 06:59 06:59 06:59 Intake Total 237 Balance 237 Weight 51.3 kg General appearance: PRESENT: no acute distress, well-developed, well-nourished Head exam: PRESENT: atraumatic, normocephalic Eye exam: PRESENT: conjunctiva pink, EOMI, PERRLA. ABSENT: scleral icterus Ear exam: PRESENT: normal external ear exam Mouth exam: PRESENT: moist, tongue midline Neck exam: ABSENT: carotid bruit, JVD, lymphadenopathy, thyromegaly Respiratory exam: PRESENT: wheezes. ABSENT: rales, rhonchi Cardiovascular exam: PRESENT: RRR. ABSENT: diastolic murmur, rubs, systolic murmur Pulses: PRESENT: normal dorsalis pedis pul Vascular exam: PRESENT: normal capillary refill GI/Abdominal exam: PRESENT: normal bowel sounds, soft. ABSENT: distended, guarding, mass, organolmegaly, rebound, tenderness Rectal exam: PRESENT: deferred Extremities exam: PRESENT: full ROM. ABSENT: calf tenderness, clubbing, pedal edema Neurological exam: PRESENT: alert, awake, oriented to person, oriented to place, oriented to time, oriented to situation, CN II-XII grossly intact. ABSENT: m otor sensory deficit Psychiatric exam: PRESENT: appropriate affect, normal mood. ABSENT: homicidal ideation, suicidal ideation Skin exam: PRESENT: dry, intact, warm. ABSENT: cyanosis, rash Results Laboratory Results: 08/31/19 07:30 08/31/19 07:30 08/31/19 07:30 Troponin I < 0.012 Impressions: Chest X-Ray 08/31/19 07:42 IMPRESSION: COPD. NO ACUTE RADIOGRAPHIC FINDING IN THE CHEST. Assessment and Plan - Diagnosis (1) Acute and chronic respiratory failure Qualifiers: Respiratory failure complication: unspecified whether with hypoxia or hypercapnia Qualified Code(s): J96.20 - Acute and chronic respiratory failure, unspecified whether with hypoxia or hypercapnia Is this a current diagnosis for this admission?: Yes Plan: Due to underlying COPD complicated by tobacco abuse. On home O2, 2 L NC. SPO2 WNL on 2 L. Wheezing on physical examination. Continue DuoNeb's, IV steroids, empiric IV antibiotic, LMA, ICS, LABA. Outpatient PCP and pulmonology follow-up. (2) COPD exacerbation Is this a current diagnosis for this admission?: Yes Plan: As per #1. (3) Hypertension Qualifiers: Hypertension type: essential hypertension Qualified Code(s): I10 - Esse ntial (primary) hypertension Is this a current diagnosis for this admission?: Yes Plan: Euvolemic. Normotensive. Restart home meds. Adjust meds as needed. Outpatient PCP follow-up.
[2019-09-01] MEDS: ESCITALOPRAM OXALATE 10 MG TABLET PO SCH (13:23)
[2019-09-01] MEDS: FLUTICASONE/VILANTEROL 200-25 MCG/DOSE IH SCH (13:25)
[2019-09-01] MEDS: UMECLIDINIUM BROMIDE 62.5 MCG/DOSE IH SCH (16:08)
[2019-09-02] MEDS ORDERED: ACETAMINOPHEN 325 MG TABLET PO PRN (03:45)
[2019-09-02 05:17] LABS: ABSOLUTE LYMPHOCYTES (AUTO) 1.4 10^3/uL (0.5-4.7); ABSOLUTE NEUT (AUTO) 9.4 10^3/uL (1.7-8.2); EOSINOPHILS % (AUTO) 0.2 % (0-6); HEMATOCRIT 34.7 % (36.0-47.0); HEMOGLOBIN 11.7 g/dL (12.0-15.5); LYMPHOCYTES % (AUTO) 11.7 % (13-45); MEAN CORPUSCULAR HEMOGLOBIN 31.5 pg (27.0-33.4); MEAN CORPUSCULAR HGB CONC 33.6 g/dL (32.0-36.0); MEAN CORPUSCULAR VOLUME 94 fl (80-97); MONOCYTES % (AUTO) 8.4 % (3-13); PLATELET COUNT 384 10^3/uL (150-450); RED CELL DISTRIBUTION WIDTH 14.5 % (11.5-14.0); SEGMENTED NEUTROPHILS % (AUTO) 79.7 % (42-78); TOTAL CELLS COUNTED % (AUTO) 100 %; WHITE BLOOD COUNT 11.8 10^3/uL (4.0-10.5)
[2019-09-02 05:40] LABS: ALBUMIN 3.9 g/dL (3.5-5.0); ALKALINE PHOSPHATASE 37 U/L (38-126); ANION GAP 8 (5-19); ASPARTATE AMINO TRANSFERASE 16 U/L (14-36); BILIRUBIN,DIRECT 0.2 mg/dL (0.0-0.4); BILIRUBIN,TOTAL 0.3 mg/dL (0.2-1.3); BLOOD UREA NITROGEN 12 mg/dL (7-20); CALCIUM 9.6 mg/dL (8.4-10.2); CARBON DIOXIDE 29 mmol/L (22-30); CHLORIDE 103 mmol/L (98-107); GLUCOSE 127 mg/dL (75-110); POTASSIUM 4.4 mmol/L (3.6-5.0); TOTAL PROTEIN 6.3 g/dL (6.3-8.2)
[2019-09-02] MEDS: IPRATROPIUM/ALBUTEROL 0.5-2.5 MG/3 ML AMPUL NEB SCH (08:54)
[2019-09-02] MEDS: UMECLIDINIUM BROMIDE 62.5 MCG/DOSE IH SCH (09:36)
[2019-09-02] MEDS: FLUTICASONE/VILANTEROL 200-25 MCG/DOSE IH SCH (09:36)
[2019-09-02] MEDS: FLUTICASONE NASAL SPRAY 50 MCG/SPRY 120 SPRAY/16 GM NASL SCH (09:37)
[2019-09-02] MEDS: DOXYCYCLINE HYCLATE 100 MG TABLET PO SCH (09:38)
[2019-09-02] MEDS: ESCITALOPRAM OXALATE 10 MG TABLET PO SCH (09:39)
[2019-09-02 09:55] VITALS: BP 115/70
[2019-09-02] MEDS ORDERED: LISINOPRIL 10 MG TABLET PO SCH (10:00)
--- NOTE | 2019-09-02 15:39 | PDOC DISCHARGE SUMMARY ---
Impression - Admit/DC Date/PCP Admission Date/Primary Care Provider: 08/31/19 14:23 SUSAN TREJO MD Discharge Date: 09/02/19 - Discharge Diagnosis (1) Acute and chronic respiratory failure Is this a current diagnosis for this admission?: Yes (2) COPD exacerbation Is this a current diagnosis for this admission?: Yes (3) Hypertension Is this a current diagnosis for this admission?: Yes - Additional Information Resuscitation Status: Full Code Discharge Diet: Cardiac Discharge Activity: Activity As Tolerated, Balance Activity w/Rest Referrals: SUSAN TREJO MD [Primary Care Provider] - Follow up as needed Prescriptions: Prednisone [Deltasone 20 mg Tablet] 20 mg PO BID 3 Days #40 tablet Levofloxacin [Levaquin 500 mg Tablet] 500 mg PO DAILY 4 Days #4 tablet Home Medications: Albuterol Sulfate [Proair HFA Inhalation Aerosol 8.5 gm MDI] 2 puff IH QIDP PRN 08/07/19 Albuterol Sulfate [Ventolin 0.083% Neb 2.5 mg/3 mL Ampul] 1 vial NEB RTQIDP PRN 08/07/19 Diphenhydramine HCl [Benadryl] 25 mg PO DAILY 08/07/19 Diphenhydramine HCl [Benadryl] 25 mg PO DAILYP PRN 08/07/19 Escitalopram Oxalate [Lexapro 10 mg Tablet] 10 mg PO DAILY 08/07/19 Lisinopril [Prinivil 10 mg Tablet] 10 mg PO DAILY 08/07/19 Budesonide/Formoterol Fumarate [Symbicort HFA 160-4.5 mcg Inhaler 6 gm] 2 puff IH Q12 #1 inhaler 08/09/19 Ipratropium/Albuterol Sulfate [Duoneb 3 ml Ampul] 3 ml NEB RTQ4HP PRN 15 Days #50 vial.neb 08/09/19 Tiotropium [place] [Spiriva Handihaler 5 Cap/Kit (18 Mcg/Cap)] 1 cap IH DAILY 30 Days #30 capsule 08/09/19 Albuterol Sulfate [Proair HFA Inhalation Aerosol 8.5 gm MDI] 2 puff IH Q6HP PRN 08/31/19 Prednisone [Deltasone 5 mg Tablet] 5 mg PO ASDIR PRN 11/07/19 Levofloxacin [Levaquin 500 mg Tablet] 500 mg PO DAILY 4 Days #4 tablet 09/02/19 Prednisone [Deltasone 20 mg Tablet] 20 mg PO BID 3 Days #40 tablet 09/02/19 History of Present Illiness History of Present Illness: BALJIT FARRIS is a 48 year old female with end-stage COPD who was discharged from this hospital the middle of last month and has been on a long steroid taper ever since he says she has been compliant with her medications and denies smoking currently, but she said that not long ago she was still smoking. She came in by EMS because she woke up short of breath. She did nebulizer treatment and then called EMS. They gave her nebulizer treatment, some Solu-Medrol and some magnesium. She had another nebulizer treatment after she got to the ER. She was back to her baseline. She normally wears 2 L of oxygen continuously, and when she gets up and moves around she turns it up to 3 L. She normally does not walk more than about 30 feet at one stretch before resting. She was back to her baseline in the ER when they got her up and walked her, on 2 L, all the way around the nurses station, 3-4 times longer than the distance she normally walks, and of course she got tachypneic. At this point they are called us to admit. She says she feels back to normal. Hospital Course Hospital Course: (1) Acute and chronic respiratory failure Due to underlying COPD complicated by tobacco abuse. On home O2, 2 L NC. Was a started on continue DuoNeb's, IV steroids, empiric IV antibiotic, LMA, ICS, LABA. Resolved. SPO2 WNL on 2 L. Was discharged on 4 days of p.o. levofloxacin and 3 days of p.o. steroids. Was asked to restart her BURTON, ICS and LABA. Outpatient PCP and pulmonology follow-up. (2) COPD exacerbation As per #1. (3) Hypertension Euvolemic. Normotensive. Was restarted on home meds. Advised to resume home meds upon discharge. Outpatient PCP follow-up. Physical Exam Vital Signs: Temp Pulse Resp BP Pulse Ox 97.5 F 96 18 115/70 94 09/02/19 09:45 09/02/19 09:45 09/02/19 09:45 09/02/19 09:45 09/02/19 09:45 Intake & Output 09/01/19 09/02/19 09/03/19 06:59 06:59 06:59 Intake Total 237 1280 Balance 237 1280 Weight 51.3 kg 51.3 kg General appearance: PRESENT: no acute distress, well-developed, well-nourished Head exam: PRESENT: atraumatic, normocephalic Eye exam: PRESENT: conjunctiva pink, EOMI, PERRLA. ABSENT: scleral icterus Ear exam: PRESENT: normal external ear exam Mouth exam: PRESENT: moist, tongue midline Neck exam: ABSENT: carotid bruit, JVD, lymphadenopathy, thyromegaly Respiratory exam: PRESENT: clear to auscultation eva. ABSENT: rales, rhonchi, wheezes Cardiovascular exam: PRESENT: RRR. ABSENT: diastolic murmur, rubs, systolic murmur Pulses: PRESENT: normal dorsalis pedis pul Vascular exam: PRESENT: normal capillary refill GI/Abdominal exam: PRESENT: normal bowel sounds, soft. ABSENT: distended, guarding, mass, organolmegaly, rebound, tenderness Rectal exam: PRESENT: deferred Extremities exam: PRESENT: full ROM. ABSENT: calf tenderness, clubbing, pedal edema Neurological exam: PRESENT: alert, awake, oriented to person, oriented to place, oriented to time, oriented to situation, CN II-XII grossly intact. ABSENT: motor sensory deficit Psychiatric exam: PRESENT: appropriate affect, normal mood. ABSENT: homicidal ideation, suicidal ideation Skin exam: PRESENT: dry, intact, warm. ABSENT: cyanosis, rash Results Laboratory Results: WBC 11.8 10^3/uL (4.0-10.5) H 09/02/19 04:25 RBC 3.70 10^6/uL (3.72-5.28) L 09/02/19 04:25 Hgb 11.7 g/dL (12.0-15.5) L 09/02/19 04:25 Hct 34.7 % (36.0-47.0) L 09/02/19 04:25 MCV 94 fl (80-97) 09/02/19 04:25 MCH 31.5 pg (27.0-33.4) 09/02/19 04:25 MCHC 33.6 g/dL (32.0-36.0) 09/02/19 04:25 RDW 14.5 % (11.5-14.0) H 09/02/19 04:25 Plt Count 384 10^3/uL (150-450) 09/02/19 04:25 Lymph % (Auto) 11.7 % (13-45) L 09/02/19 04:25 [place] % (Auto) 8.4 % (3-13) 09/02/19 04:25 Eos % (Auto) 0.2 % (0-6) 09/02/19 04:25 Baso % (Auto) 0.0 % (0-2) 09/02/19 04:25 Absolute Neuts (auto) 9.4 10^3/uL (1.7-8.2) H 09/02/19 04:25 Absolute Lymphs (auto) 1.4 10^3/uL (0.5-4.7) 09/02/19 04:25 Absolute Monos (auto) 1.0 10^3/uL (0.1-1.4) 09/02/19 04:25 Absolute Eos (auto) 0.0 10^3/uL (0.0-0.6) 09/02/19 04:25 Absolute Basos (auto) 0.0 10^3/uL (0.0-0.2) 09/02/19 04:25 Seg Neutrophils % 79.7 % (42-78) H 09/02/19 04:25 Carbonic Acid 1.47 mmol/L (1.05-1.35) H 08/31/19 08:41 HCO3/H2CO3 Ratio 18:1 08/31/19 08:41 ABG pH 7.37 (7.35-7.45) 08/31/19 08:41 ABG pCO2 48.9 mmHg (35-45) H 08/31/19 08:41 ABG pO2 105.3 mmHg (80-100) H 08/31/19 08:41 ABG HCO3 27.9 mmol/L (20-24) H 08/31/19 08:41 ABG Total CO2 29.4 mmol/L (21-25) H 08/31/19 08:41 ABG O2 Saturation 97.7 % (94-98) 08/31/19 08:41 ABG Base Excess 1.9 mmol/L 08/31/19 08:41 VBG pH 7.28 (7.30-7.42) L 08/31/19 07:30 VBG pCO2 59.8 mmHg (35-63) 08/31/19 07:30 VBG HCO3 27.4 mmol/L (20-32) 08/31/19 07:30 VBG Base Excess -0.5 mmol/L 08/31/19 07:30 FiO2 28% 08/31/19 08:41 Sodium 140.1 mmol/L (137-145) 09/02/19 04:25 Potassium 4.4 mmol/L (3.6-5.0) 09/02/19 04:25 Chloride 103 mmol/L (98-107) 09/02/19 04:25 Carbon Dioxide 29 mmol/L (22-30) 09/02/19 04:25 Anion Gap 8 (5-19) 09/02/19 04:25 BUN 12 mg/dL (7-20) 09/02/19 04:25 Creatinine 0.61 mg/dL (0.52-1.25) 09/02/19 04:25 Est GFR ( Amer) > 60 (>60) 09/02/19 04:25 Est GFR (MDRD) Non-Af > 60 (>60) 09/02/19 04:25 Glucose 127 mg/dL (75-110) H 09/02/19 04:25 Lactic Acid 1.2 mmol/L (0.7-2.1) 08/31/19 07:30 Calcium 9.6 mg/dL (8.4-10.2) 09/02/19 04:25 Total Bilirubin 0.3 mg/dL (0.2-1.3) 09/02/19 04:25 Direct Bilirubin 0.2 mg/dL (0.0-0.4) 09/02/19 04:25 Neonat Total Bilirubin Not Reportable 09/02/19 04:25 Neonat Direct Bilirubin Not Reportable 09/02/19 04:25 Neonat Indirect Bili Not Reportable 09/02/19 04:25 AST 16 U/L (14-36) 09/02/19 04:25 ALT 21 U/L (<35) 09/02/19 04:25 Alkaline Phosphatase 37 U/L (38-126) L 09/02/19 04:25 Troponin I < 0.012 ng/mL 08/31/19 07:30 Total Protein 6.3 g/dL (6.3-8.2) 09/02/19 04:25 Albumin 3.9 g/dL (3.5-5.0) 09/02/19 04:25 08/31/19 07:30 Troponin I < 0.012 Impressions: Chest X-Ray 08/31/19 07:42 IMPRESSION: COPD. NO ACUTE RADIOGRAPHIC FINDING IN THE CHEST. Stroke Is this a Stroke Patient?: No Acute Heart Failure - Is this a Heart Failure Patient?: No
== END 2019-09-02 11:30 | disposition home or self-care (01) ==
LOC: ER 07:21 → EH 14:23 → 5 16:31
PROVIDERS: ADMIT Family Medicine; ATTEND Family Medicine
DX: J96.21 Acute and chronic respiratory failure with hypoxia (principal); J44.1 Chronic obstructive pulmonary disease with (acute) exacerbation; I10 Essential (primary) hypertension; I25.2 Old myocardial infarction; Z79.899 Other long term (current) drug therapy; Z99.81 Dependence on supplemental oxygen; Z87.891 Personal history of nicotine dependence; Z82.49 Family history of ischemic heart disease and other diseases of the circulatory system
CPT/HCPCS: 93005; 94640 ×5; 99285; 36415 ×2; 87040; 82803 ×2; 85025 ×2; 80053 ×2; 84484; 83605; 71045; 93010; 94660 ×2; G0378 ×4; J3490 ×10; J1885; J7512; J7620 ×3

== ENCOUNTER 2020-08-05 18:38 | Inpatient (IN) | payer MEDICAID, OTHER ==
[2020-08-05] MEDS ORDERED: ALBUTEROL SULFATE 0.083% NEB 2.5 MG/3 ML AMPUL NEB ONE (18:46)
--- NOTE | 2020-08-05 18:47 | ER Document Report ---
ED General - General Chief Complaint: Respiratory Distress Stated Complaint: DIFFICULTY BREATHING Time Seen by Provider: 08/05/20 18:44 Primary Care Provider: SUSAN TREJO MD [COMMUNITY BASED STAFF] - Follow up as needed TRAVEL OUTSIDE OF THE [place] IN LAST 30 DAYS: No - HPI Notes: 49-year-old female who arrives in respiratory distress. There is limitation in HPI due to acuity of situation. Per EMS, patient has a history of COPD and has been out of medications for several days. She was given Xopenex neb, 125 mg site Solu-Medrol, 2 g magnesium, 4 mg Zofran and started on CPAP. Patient able to shake her head "yes" that she has had shortness of breath for a few days, she has had fever and no vomiting. She denies diarrhea or current smoking. - Related Data Allergies/Adverse Reactions: Penicillins Allergy (Severe, Verified 08/25/18 18:24) Anaphylaxis Past Medical History - General Information source: Patient, Emergency Med Personnel - Social History Smoking Status: Former Smoker Family History: Hypertension. denies: COPD - Past Medical History Cardiac Medical History: Reports: Hx Congestive Heart Failure, Hx Heart Attack, Hx Hypertension Pulmonary Medical History: Reports: Hx Asthma, Hx Bronchitis, Hx COPD, Hx Pne umonia Renal/ Medical History: Denies: Hx Peritoneal Dialysis Musculoskeletal Medical History: Reports Hx Arthritis Psychiatric Medical History: Reports: Hx Depression Past Surgical History: Reports: Hx Cholecystectomy - Immunizations Hx Diphtheria, Pertussis, Tetanus Vaccination: Yes Review of Systems - Review of Systems -: Yes ROS unobtainable due to patient's medical condition Constitutional: Fever Respiratory: Short of breath Gastrointestinal: Vomiting. denies: Diarrhea Physical Exam - Vital signs Vitals: Temp Resp BP Pulse Ox 98.0 F 17 186/113 H 100 08/05/20 18:42 08/05/20 18:42 08/05/20 18:42 08/05/20 18:42 - General General appearance: Alert In distress: Moderate - HEENT Head: Normocephalic, Atraumatic Extraocular movements intact: Yes Pupils: PERRL - Respiratory Respiratory status: Labored, Tachypnea Breath sounds: Other - Significantly reduced air movement/breath sounds - Cardiovascular Rhythm: Tachycardia - Abdominal Distension: No distension - Extremities General lower extremity: No: Edema - Neurological Neuro grossly intact: Yes Cognition: Normal - Psychological Associated symptoms: Normal affect - Skin Skin Temperature: Warm Course - Re-evaluation Re-evalutation: 49-year-old female history COPD without medications for several days per EMS report here with respiratory distress. On exam she is tachypneic, labored breathing, significantly reduced breath sounds. Will start on continuous albuterol hand continue on BiPAP. Some limitation to HPI at the present, where he evaluate once patient feeling improved. She does note fever at home, afebrile here. Pneumonia versus viral illness possible as well. 08/05/20 19:38 And to reassess patient, she now has breath sounds, significant biphasic wheezing. She is able to talk in complete sentences. She looks improved. She complains of a headache which has been going on for several days has well, will trial Toradol for symptom control, avoiding anything sedating given her respiratory status 08/05/20 20:21 Patient with improvement in her overall respiratory status. Able to fully discuss symptoms with her. She states that she has felt feverish at home for the past couple days, she has not taken her temperature. She has been out of her medications that help control her mucus. She has a chronic cough which she says is now increasing because she has not been able to get out her mucus. D enies any known Covid exposures, she is agreeable to testing given her respiratory symptoms and the pandemic. She states she is having her typical migraine as well. Discussed with her need for admission. 08/05/20 20:26 Leukocytosis present. Chest x-ray is without consolidation. Dose of doxycycl ine ordered for COPDe Respiratory acidosis present on VBG. Patient has been on positive pressure ve ntilation since she has been here, will repeat VBG at this time 08/05/20 20:46 Patient was discussed with the hospitalist team for admission - Vital Signs Vital signs: Temp Pulse Resp BP Pulse Ox 98.0 F 20 152/105 H 99 08/05/20 18:42 08/05/20 19:01 08/05/20 19:01 08/05/20 19:01 - Laboratory Result Diagrams: 08/05/20 19:03 08/05/20 19:03 Laboratory results interpreted by me: 08/05/20 08/05/20 08/05/20 19:03 19:03 19:03 WBC 15.3 H Hgb 11.3 L Hct 32.6 L RDW 16.1 H Plt Count 490 H Lymph % (Auto) 8.5 L Absolute Neuts (auto) 12.8 H Seg Neutrophils % 83.6 H VBG pH 7.21 L VBG pCO2 63.9 H BUN 6 L Creatinine 0.50 L Glucose 172 H - Diagnostic Test Radiology reviewed: Image reviewed, Reports reviewed - EKG Interpretation by Me Additional EKG results interpreted by me: EKG as interpreted by me. Sinus tachycardia, rate 121. Narrow QRS, QTC within normal limits. No ST segment elevation. Asymmetric P waves. EKG is similar in appearance to previous. Discharge - Discharge Clinical Impression: COPD exacerbation, Person under investigation for COVID-19 Disposition: ADMITTED INPATIENT Admitting Provider: [place] (Hospitalist) Unit Admitted: [facility] Referrals: SUSAN TREJO MD [COMMUNITY BASED STAFF] - Follow up as needed
[2020-08-05] MEDS ORDERED: RINGERS SOLUTION,LACTATED 1,000 ML IV ONE (18:49)
--- NOTE | 2020-08-05 19:02 | RADIOLOGY REPORT (SQ) ---
EXAM DESCRIPTION: CHEST SINGLE VIEW IMAGES COMPLETED DATE/TIME: 08/05/2020 6:54 pm REASON FOR STUDY: bed 6 sepsis protocol COMPARISON: 08/31/2019 EXAM PARAMETERS: NUMBER OF VIEWS: One view. TECHNIQUE: Single frontal radiographic view of the chest acquired. RADIATION DOSE: NA LIMITATIONS: None. FINDINGS: LUNGS AND PLEURA: No opacities, masses or pneumothorax. No pleural effusion. MEDIASTINUM AND HILAR STRUCTURES: No masses. Contour normal. HEART AND VASCULAR STRUCTURES: Heart normal in size. Normal vasculature. BONES: No acute findings. HARDWARE: None in the chest. OTHER: No other significant finding. IMPRESSION: NO ACUTE RADIOGRAPHIC FINDING IN THE CHEST. TECHNICAL DOCUMENTATION: JOB ID: [id number] 2010 [employer]- All Rights Reserved Reading location - IP/workstation name: [email or web address]
[2020-08-05] MEDS ORDERED: KETOROLAC TROMETHAMINE INJ/PF 30 MG/1 ML SDV IV ONE (19:39)
[2020-08-05 20:02] LABS: ABSOLUTE BASOPHILS # (AUTO) 0.1 10^3/uL (0.0-0.2); ABSOLUTE EOSINOPHILS # (AUTO) 0.5 10^3/uL (0.0-0.6); ABSOLUTE LYMPHOCYTES (AUTO) 1.3 10^3/uL (0.5-4.7); ABSOLUTE MONOCYTES (AUTO) 0.6 10^3/uL (0.1-1.4); ABSOLUTE NEUT (AUTO) 12.8 10^3/uL (1.7-8.2); BASOPHILS % (AUTO) 0.7 % (0-2); EOSINOPHILS % (AUTO) 3.2 % (0-6); HEMATOCRIT 32.6 % (36.0-47.0); HEMOGLOBIN 11.3 g/dL (12.0-15.5); LYMPHOCYTES % (AUTO) 8.5 % (13-45); MEAN CORPUSCULAR HEMOGLOBIN 29.9 pg (27.0-33.4); MEAN CORPUSCULAR HGB CONC 34.6 g/dL (32.0-36.0); MEAN CORPUSCULAR VOLUME 87 fl (80-97); PLATELET COUNT 490 10^3/uL (150-450); RED BLOOD COUNT 3.77 10^6/uL (3.72-5.28); RED CELL DISTRIBUTION WIDTH 16.1 % (11.5-14.0); SEGMENTED NEUTROPHILS % (AUTO) 83.6 % (42-78); TOTAL CELLS COUNTED % (AUTO) 100 %; WHITE BLOOD COUNT 15.3 10^3/uL (4.0-10.5)
[2020-08-05 20:04] LABS: VENOUS BLOOD BASE EXCESS -3.8 mmol/L; VENOUS BLOOD HCO3 25.1 mmol/L (20-32); VENOUS BLOOD PCO2 63.9 mmHg (35-63); VENOUS BLOOD PH 7.21 (7.30-7.42)
[2020-08-05] MEDS ORDERED: DOXYCYCLINE HYCLATE 100 MG TABLET PO ONE (20:17)
[2020-08-05 20:23] LABS: ALBUMIN 4.3 g/dL (3.5-5.0); ALKALINE PHOSPHATASE 64 U/L (38-126); ANION GAP 10 (5-19); ASPARTATE AMINO TRANSFERASE 25 U/L (14-36); BILIRUBIN,DIRECT 0.3 mg/dL (0.0-0.4); BILIRUBIN,TOTAL 0.5 mg/dL (0.2-1.3); BLOOD UREA NITROGEN 6 mg/dL (7-20); CALCIUM 8.8 mg/dL (8.4-10.2); CARBON DIOXIDE 27 mmol/L (22-30); CHLORIDE 100 mmol/L (98-107); GLUCOSE 172 mg/dL (75-110); POTASSIUM 4.2 mmol/L (3.6-5.0); TOTAL PROTEIN 6.9 g/dL (6.3-8.2)
[2020-08-05 21:05] LABS: VENOUS BLOOD BASE EXCESS 0.8 mmol/L; VENOUS BLOOD HCO3 31.6 mmol/L (20-32)
[2020-08-05 21:06] LABS: VENOUS BLOOD PCO2 85.4 mmHg (35-63); VENOUS BLOOD PH 7.19 (7.30-7.42)
[2020-08-05] MEDS ORDERED: LEVALBUTEROL HCL NEB 1.25 MG/3 ML AMPUL NEB PRN (21:58)
[2020-08-05] MEDS ORDERED: GLUCAGON,HUMAN RECOMB 1 MG INJ SUBCUT PRN (21:58)
[2020-08-05] MEDS ORDERED: DEXTROSE 40% GEL 15 GM TUBE PO PRN ×2 (21:58)
[2020-08-05] MEDS ORDERED: ONDANSETRON HCL INJ/PF 4 MG/2 ML SDV IV PRN (21:58)
[2020-08-05] MEDS ORDERED: DEXTROSE 50%-WATER 25 GM/50 ML DISP.SYRIN IV PRN ×2 (21:58)
[2020-08-05] MEDS ORDERED: MAG HYDROX/AL HYDROX/SIMETH SUSP 30 ML UDCUP PO PRN (21:58)
[2020-08-05] MEDS ORDERED: GUAIFENESIN SYRP 200 MG/10 ML UDC PO PRN (22:27)
--- NOTE | 2020-08-05 22:29 | PDOC H&P ---
History of Present Illness Admission Date/PCP: 08/05/20 21:06 Patient complains of: Shortness of breath History of Present Illness: BALJIT FARRIS is a 49 year old female with history of COPD on 2 L nasal cannula, hypertension, who presents to the hospital via EMS for progressive shortness of breath over the past 2 days. Patient has been also experiencing increased cough with mild sputum production. She became significantly dyspneic today and could barely catch her breath. She experienced chest tightness at that time. She notes feeling warm to the touch for the past few days but is not clear if she actually had a fever. Also endorses body aches. Denies rhinorrhea or nasal congestion. Denies sore throat. On presentation of the EMS, patient was barely moving air and was given nebulizer treatments, 125 mg of Solu-Medrol as well as magnesium in route to the hospital. In the ER patient was placed on a BiPAP after being noted to be acidotic. Patient states she has her inhalers at home and has been using nebulizer frequently in the past few days but has not been working. She follows with Dr. Jennings for her COPD. Past Medical History Cardiac Medical History: Reports: Congestive Heart Failure, Myocardial I nfarction, Hypertension Pulmonary Medical History: Reports: Asthma, Bronchitis, Chronic Obstructive Pulmonary Disease (COPD), Pneumonia Musculoskeltal Medical History: Reports: Arthritis Psychiatric Medical History: Reports: Depression Hematology: Reports: Anemia Past Surgical History Past Surgical History: Reports: Cholecystectomy Social History Smoking Status: Former Smoker Frequency of Alcohol Use: None Hx Recreational Drug Use: No Drugs: None Hx Prescription Drug Abuse: No - Advance Directive Resuscitation Status: Do Not Resuscitate - In the event of cardiac arrest, kiko ent wants to be a DNR/DNI but in the absence of cardiac arrest, patient is okay with intubation. Family History Family History: Hypertension. denies: COPD Parental Family History Reviewed: Yes Children Family History Reviewed: NA Sibling(s) Family History Reviewed.: Yes Medication/Allergy Home Medications: Albuterol Sulfate [Proair HFA Inhalation Aerosol 8.5 gm MDI] 2 puff IH QIDP PRN 08/07/19 Albuterol Sulfate [Ventolin 0.083% Neb 2.5 mg/3 mL Ampul] 1 vial NEB RTQIDP PRN 08/07/19 Diphenhydramine HCl [Benadryl] 25 mg PO DAILY 10/14/19 Diphenhydramine HCl [Benadryl] 25 mg PO DAILYP PRN 08/07/19 Escitalopram Oxalate [Lexapro 10 mg Tablet] 10 mg PO DAILY 08/07/19 Lisinopril [Prinivil 10 mg Tablet] 10 mg PO DAILY 08/07/19 Budesonide/Formoterol Fumarate [Symbicort HFA 160-4.5 mcg Inhaler 6 gm] 2 puff IH Q12 #1 inhaler 08/09/19 Ipratropium/Albuterol Sulfate [Duoneb 3 ml Ampul] 3 ml NEB RTQ4HP PRN 15 Days #50 vial.neb 08/09/19 Tiotropium [place] [Spiriva Handihaler 5 Cap/Kit (18 Mcg/Cap)] 1 cap IH DAILY 30 Days #30 capsule 08/09/19 Albuterol Sulfate [Proair HFA Inhalation Aerosol 8.5 gm MDI] 2 puff IH Q6HP PRN 08/31/19 Prednisone [Deltasone 5 mg Tablet] 5 mg PO ASDIR PRN 08/31/19 Levofloxacin [Levaquin 500 mg Tablet] 500 mg PO DAILY 4 Days #4 tablet 09/02/19 Prednisone [Deltasone 20 mg Tablet] 20 mg PO BID 3 Days #40 tablet 09/02/19 Allergies/Adverse Reactions: Penicillins Allergy (Severe, Verified 08/25/18 18:24) Anaphylaxis Review of Systems Constitutional: PRESENT: other - Feeling warm to touch possible fever Eyes: ABSENT: visual disturbances Nose, Mouth, and Throat: ABSENT: headache(s) Cardiovascular: ABSENT: orthropnea Respiratory: PRESENT: cough, dyspnea, sputum Gastrointestinal: PRESENT: nausea, vomiting. ABSENT: abdominal pain, diarrhea Genitourinary: ABSENT: dysuria Musculoskeletal: PRESENT: back pain Integumentary: ABSENT: diaphoresis Neurological: PRESENT: dizziness Endocrine: ABSENT: polyuria Allergic/Immunologic: ABSENT: seasonal rhinorrhea Physical Exam Vital Signs: Temp Pulse Resp BP Pulse Ox 98.0 F 24 H 155/88 H 100 08/05/20 18:42 08/05/20 20:01 08/05/20 20:01 08/05/20 20:01 Intake & Output 08/04/20 08/05/20 08/06/20 06:59 06:59 06:59 Intake Total 1000 Balance 1000 Weight 47.174 kg General appearance: PRESENT: no acute distress, cooperative Head exam: PRESENT: normocephalic Eye exam: PRESENT: EOMI Neck exam: ABSENT: JVD Respiratory exam: PRESENT: decreased breath sounds - Throughout lung bacon, symmetrical, tachypnea, unlabored, wheezes - Very mild expiratory wheezing. ABSENT: crackles, rales, rhonchi, stridor Cardiovascular exam: PRESENT: +S1, +S2, tachycardia. ABSENT: irregular rhythm GI/Abdominal exam: PRESENT: soft. ABSENT: rebound, rigid, tenderness Extremities exam: ABSENT: pedal edema, +1 edema Neurological exam: PRESENT: alert, awake, oriented to person, oriented to place, oriented to time, oriented to situation Psychiatric exam: ABSENT: agitated, anxious Focused psych exam: ABSENT: pressured speech Skin exam: ABSENT: jaundice Results Laboratory Results: 08/05/20 19:03 08/05/20 19:03 08/05/20 08/05/20 08/05/20 19:03 19:03 19:03 WBC 15.3 H RBC 3.77 Hgb 11.3 L Hct 32.6 L MCV 87 MCH 29.9 MCHC 34.6 RDW 16.1 H Plt Count 490 H Seg Neutrophils % 83.6 H VBG pH 7.21 L VBG pCO2 63.9 H VBG HCO3 25.1 VBG Base Excess -3.8 Sodium 137.4 Potassium 4.2 Chloride 100 Carbon Dioxide 27 Anion Gap 10 BUN 6 L Creatinine 0.50 L Est GFR ( Amer) > 60 Glucose 172 H Calcium 8.8 Total Bilirubin 0.5 AST 25 Alkaline Phosphatase 64 Total Protein 6.9 Albumin 4.3 08/05/20 20:42 WBC RBC Hgb Hct MCV MCH MCHC RDW Plt Count Seg Neutrophils % VBG pH 7.19 L* VBG pCO2 85.4 H* VBG HCO3 31.6 VBG Base Excess 0.8 Sodium Potassium Chloride Carbon Dioxide Anion Gap BUN Creatinine Est GFR ( Amer) Glucose Calcium Total Bilirubin AST Alkaline Phosphatase Total Protein Albumin Impressions: Chest X-Ray 08/05/20 18:42 IMPRESSION: NO ACUTE RADIOGRAPHIC FINDING IN THE CHEST. Assessment and Plan - Diagnosis (1) Acute respiratory failure with hypercapnia Is this a current diagnosis for this admission?: Yes Plan: Secondary to COPD exacerbation Patient was placed on BiPAP but I have repeated a VBG and showing worsening of hypercapnia now with severe respiratory acidosis Patient however currently mentating well Will change BiPAP to AVAP, targeted tidal volume of 500 cc and check blood gas in 1 hour. Continue treatment for COPD exacerbation Consult pulmonology in the morning. (2) COPD exacerbation Is this a current diagnosis for this admission?: Yes Plan: Chest x-ray shows no evidence of pneumonia but does show significant COPD morphology Primarily follows with Dr. Jennings Xopenex+ ipratropium every 4 hours, budesonide, Solu-Medrol 40 mg every 12 hours, Levaquin for severe COPD exacerbation Monitor QTC. (3) Acute bronchitis Qualifiers: Bronchitis organism: unspecified organism Qualified Code(s): J20.9 - Acute bronchitis, unspecified Is this a current diagnosis for this admission?: Yes Plan: Likely viral. We will still check sputum culture. Test for suspicion of COVID-19 Check for influenza Mucolytics PRN (4) Chronic hypoxemic respiratory failure Is this a current diagnosis for this admission?: Yes Plan: Secondary to COPD. On 2 L nasal cannula home O2. Currently on NIPPV. (5) Hypertension Qualifiers: Hypertension type: essential hypertension Qualified Code(s): I10 - Essential (primary) hypertension Is this a current diagnosis for this admission?: Yes Plan: Continue lisinopril. Blood pressure currently uncontrolled. May need escalat ion of her home regimen of lisinopril 10 mg daily. - Time Time Spent with patient: 35 or more minutes Anticipated Discharge Disposition: Home, Self Care Anticipated Discharge Timeframe: within 72 hours
[2020-08-05] MEDS ORDERED: LISINOPRIL 10 MG TABLET PO ONE (22:45)
[2020-08-05] MEDS ORDERED: BUDESONIDE NEB 0.25 MG/2 ML AMPUL NEB ONE (22:45)
[2020-08-05] MEDS: ACETAMINOPHEN 325 MG TABLET PO PRN (22:57)
[2020-08-06] LABS: A TYPE INFLUENZA AG NEGATIVE (NEGATIVE); B INFLUENZA AG NEGATIVE (NEGATIVE)
[2020-08-06 00:38] LABS: ARTERIAL BLOOD BASE EXCESS -0.6 mmol/L; ARTERIAL BLOOD FIO2 45%; ARTERIAL BLOOD H2CO3 1.31 mmol/L (1.05-1.35); ARTERIAL BLOOD HCO3 24.7 mmol/L (20-24); ARTERIAL BLOOD O2 SATURATION 98.9 % (94-98); ARTERIAL BLOOD PCO2 43.4 mmHg (35-45); ARTERIAL BLOOD PH 7.37 (7.35-7.45)
--- NOTE | 2020-08-06 00:57 | ADVANCED CARE ---
- Diagnosis (1) Acute respiratory failure with hypercapnia Diagnosis Current: Yes (2) COPD exacerbation Diagnosis Current: Yes (4) Chronic hypoxemic respiratory failure Diagnosis Current: Yes Resuscitation Status: Do Not Resuscitate - In the event of cardiac arrest, patient wants to be a DNR/DNI but in the absence of cardiac arrest, patient is okay with intubation. Discussion: Discussed patient's current condition and potential of deterioration if no improvement with BiPAP. Patient states she has been intubated in the past. Patient wants to be DNR/DNI in the event of a cardiac arrest. However, in the absence of cardiac arrest, patient is okay with intubation. She is amenable to full treatment including use of NIPPV and other treatment courses deemed steffen rees. Time Spent: 17mins
[2020-08-06] MEDS: IPRATROPIUM BROMIDE 0.02% NEB 0.5 MG/2.5 ML AMPUL NEB SCH ×7 (01:07→20:17)
[2020-08-06] MEDS: LEVALBUTEROL HCL NEB 1.25 MG/3 ML AMPUL NEB SCH ×7 (01:07→20:17)
[2020-08-06 06:17] LABS: ABSOLUTE LYMPHOCYTES (AUTO) 0.4 10^3/uL (0.5-4.7); ABSOLUTE MONOCYTES (AUTO) 0.1 10^3/uL (0.1-1.4); HEMOGLOBIN 10.3 g/dL (12.0-15.5); MONOCYTES % (AUTO) 1.7 % (3-13); RED BLOOD COUNT 3.51 10^6/uL (3.72-5.28); RED CELL DISTRIBUTION WIDTH 16.1 % (11.5-14.0); TOTAL CELLS COUNTED % (AUTO) 100 %
[2020-08-06 06:24] LABS: ABSOLUTE NEUT (AUTO) 5.8 10^3/uL (1.7-8.2); BASOPHILS % (AUTO) 0.4 % (0-2); HEMATOCRIT 30.5 % (36.0-47.0); LYMPHOCYTES % (AUTO) 6.3 % (13-45); MEAN CORPUSCULAR HEMOGLOBIN 29.3 pg (27.0-33.4); MEAN CORPUSCULAR HGB CONC 33.7 g/dL (32.0-36.0); MEAN CORPUSCULAR VOLUME 87 fl (80-97); PLATELET COUNT 421 10^3/uL (150-450); SEGMENTED NEUTROPHILS % (AUTO) 91.6 % (42-78); WHITE BLOOD COUNT 6.3 10^3/uL (4.0-10.5)
[2020-08-06 06:43] LABS: ANION GAP 11 (5-19); BLOOD UREA NITROGEN 7 mg/dL (7-20); CALCIUM 9.5 mg/dL (8.4-10.2); CARBON DIOXIDE 26 mmol/L (22-30); CHLORIDE 101 mmol/L (98-107); GLUCOSE 146 mg/dL (75-110); PHOSPHORUS 3.6 mg/dL (2.5-4.5); POTASSIUM 4.8 mmol/L (3.6-5.0)
[2020-08-06 07:07] LABS: ERYTHROCYTE SEDIMENTATION RATE 29 mm/hr (0-30)
[2020-08-06 07:11] LABS: FERRITIN 8.08 ng/mL (11.1-264.0)
[2020-08-06 07:17] LABS: C-REACTIVE PROTEIN < 5.0 mg/L (<10.0)
[2020-08-06] MEDS: BUDESONIDE NEB 0.25 MG/2 ML AMPUL NEB SCH ×2 (08:42→20:17)
[2020-08-06] MEDS: LEVOFLOXACIN 500 MG TABLET PO SCH (09:51)
[2020-08-06] MEDS: LISINOPRIL 10 MG TABLET PO SCH (09:51)
[2020-08-06] MEDS: METHYLPREDNISOLONE INJ 40 MG/1 ML SDV IV SCH ×2 (09:52→21:16)
[2020-08-06] MEDS: ENOXAPARIN SODIUM INJ 40 MG/0.4 ML DISP.SYRIN SUBCUT SCH (09:52)
[2020-08-06] MEDS: DOCUSATE SODIUM 100 MG CAPSULE PO SCH (10:05)
[2020-08-06] MEDS: ACETAMINOPHEN 325 MG TABLET PO PRN (16:15)
--- NOTE | 2020-08-06 19:47 | EKG REPORT ---
SEVERITY:- OTHERWISE NORMAL ECG - SINUS TACHYCARDIA BORDERLINE RIGHT AXIS DEVIATION : Confirmed by: Paula López 06-Aug-2020 19:46:29
--- NOTE | 2020-08-06 21:28 | PDOC PROGRESS REPORT ---
Subjective Progress Note for:: 08/06/20 Subjective:: BALJIT FARRIS is a 49 year old female with history of COPD on 2 L nasal cannula, hypertension, who presents to the hospital via EMS for progressive shortness of breath over the past 2 days. Patient has been also experiencing increased cough with mild sputum production. She became significantly dyspneic today and could barely catch her breath. She experienced chest tightness at that time. She notes feeling warm to the touch for the past few days but is not clear if she actually had a fever. Also endorses body aches. Denies rhinorrhea or nasal congestion. Denies sore throat. On presentation of the EMS, patient was barely moving air and was given nebulizer treatments, 125 mg of Solu-Medrol as well as magnesium in route to the hospital. In the ER patient was placed on a BiPAP after being noted to be acidotic. Patient states she has her inhalers at home and has been using nebulizer frequently in the past few days but has not been working. She follows with Dr. Jennings for her COPD. 08/06/20 D2 hospital stay. she was seen and examined at bedside. She reports less SOB, currently on 2L NC saturating 97%. Complains of headache which she attributes to caffeine withdrawal. No chest pain, no palpitations, minimal cough. Reason For Visit: COPD EXACERBATION, HYPERCAPNIA Physical Exam Vital Signs: Temp Pulse Resp BP Pulse Ox 98.6 F 108 H 17 141/65 H 100 08/06/20 17:12 08/06/20 19:00 08/06/20 17:12 08/06/20 17:12 08/06/20 17:12 Intake & Output 08/05/20 08/06/20 08/07/20 06:59 06:59 06:59 Intake Total 1000 Output Total 150 Balance 1000 -150 Weight 51.4 kg 51.4 kg General appearance: PRESENT: cooperative, mild distress Head exam: PRESENT: atraumatic, normocephalic Eye exam: PRESENT: EOMI, PERRLA Mouth exam: PRESENT: moist Neck exam: PRESENT: full ROM Respiratory exam: PRESENT: symmetrical, wheezes. ABSENT: tachypnea, unlabored Cardiovascular exam: PRESENT: RRR, +S1, +S2 Pulses: PRESENT: normal radial pulses GI/Abdominal exam: PRESENT: normal bowel sounds, soft. ABSENT: rebound, tenderness Extremities exam: PRESENT: full ROM Musculoskeletal exam: PRESENT: full ROM Neurological exam: PRESENT: alert, awake, oriented to person, oriented to place, oriented to time, oriented to situation Psychiatric exam: PRESENT: normal mood Skin exam: PRESENT: normal color Results Laboratory Results: 08/06/20 05:48 08/06/20 05:48 08/06/20 08/06/20 08/06/20 00:10 05:48 05:48 WBC 6.3 RBC 3.51 L Hgb 10.3 L Hct 30.5 L MCV 87 MCH 29.3 MCHC 33.7 RDW 16.1 H Plt Count 421 Seg Neutrophils % 91.6 H Carbonic Acid 1.31 HCO3/H2CO3 Ratio 18:1 ABG pH 7.37 ABG pCO2 43.4 ABG pO2 151.0 H ABG HCO3 24.7 H ABG O2 Saturation 98.9 H ABG Base Excess -0.6 FiO2 45% Sodium 138.2 Potassium 4.8 Chloride 101 Carbon Dioxide 26 Anion Gap 11 BUN 7 Creatinine 0.53 Est GFR ( Amer) > 60 Glucose 146 H Calcium 9.5 Phosphorus 3.6 Magnesium 2.3 Ferritin 8.08 L C-Reactive Protein < 5.0 Impressions: Chest X-Ray 08/05/20 18:42 IMPRESSION: NO ACUTE RADIOGRAPHIC FINDING IN THE CHEST. Assessment and Plan - Diagnosis (1) Acute respiratory failure with hypercapnia Is this a current diagnosis for this admission?: Yes Plan: Secondary to COPD exacerbation Patient was placed on BiPAP then AVAP, CO2 improved targeted tidal volume of 500 cc and check blood gas in 1 hour. Continue treatment for COPD exacerbation continue inhalers (2) COPD exacerbation Is this a current diagnosis for this admission?: Yes Plan: Chest x-ray shows no evidence of pneumonia but does show significant COPD morphology Primarily follows with Dr. Jennings Xopenex+ ipratropium every 4 hours, budesonide, Solu-Medrol 40 mg every 12 hours, Levaquin for severe COPD exacerbation Monitor QTC. (3) Acute bronchitis Qualifiers: Bronchitis organism: unspecified organism Qualified Code(s): J20.9 - Acute bronchitis, unspecified Is this a current diagnosis for this admission?: Yes Plan: Likely viral. We will still check sputum culture. awaiting COVID influenza negative Mucolytics PRN (4) Chronic hypoxemic respiratory failure Is this a current diagnosis for this admission?: Yes Plan: Secondary to COPD. On 2 L nasal cannula home O2. Currently on NIPPV. (5) Person under investigation for COVID-19 Is this a current diagnosis for this admission?: Yes Plan: - awaiting COVID (6) Hypertension Qualifiers: Hypertension type: essential hypertension Qualified Code(s): I10 - Essential (primary) hypertension Is this a current diagnosis for this admission?: Yes Plan: Continue lisinopril. Blood pressure currently uncontrolled. May need escalation of her home regimen of lisinopril 10 mg daily. - Time Time Spent with patient: 25-34 minutes Anticipated Discharge Disposition: Home, Self Care Anticipated Discharge Timeframe: to be determined
[2020-08-06] MEDS ORDERED: IPRATROPIUM/ALBUTEROL 0.5-2.5 MG/3 ML AMPUL NEB ONE (22:04)
[2020-08-07] MEDS: IPRATROPIUM BROMIDE 0.02% NEB 0.5 MG/2.5 ML AMPUL NEB SCH ×6 (00:26→20:54)
[2020-08-07] MEDS: LEVALBUTEROL HCL NEB 1.25 MG/3 ML AMPUL NEB SCH ×6 (00:27→20:54)
[2020-08-07 05:31] LABS: ABSOLUTE LYMPHOCYTES (AUTO) 0.7 10^3/uL (0.5-4.7); ABSOLUTE MONOCYTES (AUTO) 0.6 10^3/uL (0.1-1.4); ABSOLUTE NEUT (AUTO) 10.6 10^3/uL (1.7-8.2); BASOPHILS % (AUTO) 0.3 % (0-2); HEMOGLOBIN 10.9 g/dL (12.0-15.5); LYMPHOCYTES % (AUTO) 6.2 % (13-45); MEAN CORPUSCULAR HEMOGLOBIN 29.3 pg (27.0-33.4); MEAN CORPUSCULAR HGB CONC 33.9 g/dL (32.0-36.0); MEAN CORPUSCULAR VOLUME 86 fl (80-97); MONOCYTES % (AUTO) 5.1 % (3-13); PLATELET COUNT 542 10^3/uL (150-450); RED BLOOD COUNT 3.71 10^6/uL (3.72-5.28); RED CELL DISTRIBUTION WIDTH 16.5 % (11.5-14.0); SEGMENTED NEUTROPHILS % (AUTO) 88.4 % (42-78); TOTAL CELLS COUNTED % (AUTO) 100 %
[2020-08-07 05:43] LABS: ANION GAP 13 (5-19); BLOOD UREA NITROGEN 11 mg/dL (7-20); CARBON DIOXIDE 27 mmol/L (22-30); CHLORIDE 100 mmol/L (98-107); GLUCOSE 131 mg/dL (75-110); POTASSIUM 4.7 mmol/L (3.6-5.0)
[2020-08-07] MEDS: BUDESONIDE NEB 0.25 MG/2 ML AMPUL NEB SCH ×2 (07:43→20:54)
[2020-08-07] MEDS: LISINOPRIL 10 MG TABLET PO SCH (10:32)
[2020-08-07] MEDS: LEVOFLOXACIN 500 MG TABLET PO SCH (10:32)
[2020-08-07] MEDS: DOCUSATE SODIUM 100 MG CAPSULE PO SCH (10:32)
[2020-08-07] MEDS: METHYLPREDNISOLONE INJ 40 MG/1 ML SDV IV SCH (10:33)
[2020-08-07] MEDS: ENOXAPARIN SODIUM INJ 40 MG/0.4 ML DISP.SYRIN SUBCUT SCH (10:33)
[2020-08-07] MEDS ORDERED: PREDNISONE 20 MG TABLET PO ONE (13:26)
--- NOTE | 2020-08-07 13:29 | PDOC PROGRESS REPORT ---
Subjective Progress Note for:: 08/07/20 Subjective:: BALJIT FARRIS is a 49 year old female with history of COPD on 2 L nasal cannula, hypertension, who presents to the hospital via EMS for progressive shortness of breath over the past 2 days. Patient has been also experiencing increased cough with mild sputum production. She became significantly dyspneic today and could barely catch her breath. She experienced chest tightness at that time. She notes feeling warm to the touch for the past few days but is not clear if she actually had a fever. Also endorses body aches. Denies rhinorrhea or nasal congestion. Denies sore throat. On presentation of the EMS, patient was barely moving air and was given nebulizer treatments, 125 mg of Solu-Medrol as well as magnesium in route to the hospital. In the ER patient was placed on a BiPAP after being noted to be acidotic. Patient states she has her inhalers at home and has been using nebulizer frequently in the past few days but has not been working. She follows with Dr. Jennings for her COPD. 08/06/20 D2 hospital stay. she was seen and examined at bedside. She reports less SOB, currently on 2L NC saturating 97%. Complains of headache which she attributes to caffeine withdrawal. No chest pain, no palpitations, minimal cough. 08/07/20 D3 Hospital stay. She was seen and examined at bedside. She reports improvement of her breathing although still not back to baseline. COVID test negative. She remains afebrile, no chest pain, no palpitations. Most of her i nhalers were resumed. Reason For Visit: COPD EXACERBATION, HYPERCAPNIA Physical Exam Vital Signs: Temp Pulse Resp BP Pulse Ox 98.1 F 99 18 136/66 H 97 08/07/20 11:45 08/07/20 12:26 08/07/20 12:26 08/07/20 11:45 08/07/20 12:26 Intake & Output 08/06/20 08/07/20 08/08/20 06:59 06:59 06:59 Intake Total 1000 360 Output Total 1150 Balance 1000 -790 Weight 51.4 kg 51 kg General appearance: PRESENT: cooperative, mild distress Head exam: PRESENT: atraumatic, normocephalic Eye exam: PRESENT: EOMI, PERRLA Ear exam: PRESENT: normal external ear exam Mouth exam: PRESENT: moist Neck exam: PRESENT: full ROM Respiratory exam: PRESENT: decreased breath sounds, rales, symmetrical, unlabored Cardiovascular exam: PRESENT: RRR, +S1, +S2 Pulses: PRESENT: +2 pedal pulses bilateral GI/Abdominal exam: PRESENT: normal bowel sounds, soft. ABSENT: rebound, tenderness Extremities exam: PRESENT: full ROM Musculoskeletal exam: PRESENT: full ROM Neurological exam: PRESENT: alert, awake, oriented to person, oriented to place, oriented to time Psychiatric exam: PRESENT: normal mood Skin exam: PRESENT: normal color Results Laboratory Results: 08/07/20 04:44 08/07/20 04:44 08/07/20 08/07/20 04:44 04:44 WBC 12.0 H RBC 3.71 L Hgb 10.9 L Hct 32.0 L MCV 86 MCH 29.3 MCHC 33.9 RDW 16.5 H Plt Count 542 H Seg Neutrophils % 88.4 H Sodium 140.4 Potassium 4.7 Chloride 100 Carbon Dioxide 27 Anion Gap 13 BUN 11 Creatinine 0.68 Est GFR ( Amer) > 60 Glucose 131 H Calcium 10.0 Impressions: Chest X-Ray 08/05/20 18:42 IMPRESSION: NO ACUTE RADIOGRAPHIC FINDING IN THE CHEST. Assessment and Plan - Diagnosis (1) Acute respiratory failure with hypercapnia Is this a current diagnosis for this admission?: Yes Plan: Secondary to COPD exacerbation Patient was placed on BiPAP then AVAP, CO2 improved resumed symbicort and spiriva duoneb PRN (2) COPD exacerbation Is this a current diagnosis for this admission?: Yes Plan: Chest x-ray shows no evidence of pneumonia but does show significant COPD morphology Primarily follows with Dr. Jennings Xopenex+ ipratropium every 4 hours switched to oral prednisone resumed spiriva and symbicort Levaquin for severe COPD exacerbation Monitor QTC. (3) Acute bronchitis Qualifiers: Bronchitis organism: unspecified organism Qualified Code(s): J20.9 - Acute bronchitis, unspecified Is this a current diagnosis for this admission?: Yes Plan: Likely viral. COVID negative influenza negative Mucolytics PRN (4) Chronic hypoxemic respiratory failure Is this a current diagnosis for this admission?: Yes Plan: Secondary to COPD. On 2 L nasal cannula home O2. (5) Person under investigation for COVID-19 Is this a current diagnosis for this admission?: Yes Plan: -COVID negative (6) Hypertension Qualifiers: Hypertension type: essential hypertension Qualified Code(s): I10 - Essential (primary) hypertension Is this a current diagnosis for this admission?: Yes Plan: Continue lisinopril. - Time Time Spent with patient: 25-34 minutes Anticipated Discharge Disposition: Home, Self Care Anticipated Discharge Timeframe: within 48 hours
[2020-08-07] MEDS ORDERED: MONTELUKAST SODIUM 10 MG TABLET PO SCH (18:00)
[2020-08-07] MEDS ORDERED: (PENDING PHARMACY ID) (Roflumilast [Daliresp] 500 MCG) PO SCH (18:00)
[2020-08-07] MEDS ORDERED: (PENDING PHARMACY ID) (Tiotropium Bromide [Spiriva Handihaler 5 Cap/Kit (18 Mcg/Cap)] 1 CA IH SCH (18:00)
[2020-08-07] MEDS ORDERED: LISINOPRIL 5 MG TABLET PO SCH (18:00)
[2020-08-07] MEDS ORDERED: ROFLUMILAST 500 MCG TABLET PO SCH (18:00)
[2020-08-07] MEDS ORDERED: CETIRIZINE 10 MG TABLET PO SCH (18:00)
[2020-08-07] MEDS ORDERED: LISINOPRIL 10 MG TABLET PO SCH (18:00)
[2020-08-07] MEDS ORDERED: FLUTICASONE NASAL SPRAY 50 MCG/SPRY 120 SPRAY/16 GM NASL SCH (18:00)
[2020-08-07] MEDS ORDERED: UMECLIDINIUM BROMIDE 62.5 MCG/DOSE IH SCH (18:00)
--- NOTE | 2020-08-07 22:05 | EKG REPORT ---
SEVERITY:- NORMAL ECG - SINUS RHYTHM : Confirmed by: Paula López 07-Aug-2020 22:04:41
[2020-08-08] MEDS: IPRATROPIUM BROMIDE 0.02% NEB 0.5 MG/2.5 ML AMPUL NEB SCH ×3 (00:40→08:38)
[2020-08-08] MEDS: LEVALBUTEROL HCL NEB 1.25 MG/3 ML AMPUL NEB SCH ×3 (00:40→08:39)
[2020-08-08 06:44] LABS: ABSOLUTE LYMPHOCYTES (AUTO) 1.5 10^3/uL (0.5-4.7); ABSOLUTE NEUT (AUTO) 5.6 10^3/uL (1.7-8.2); BASOPHILS % (AUTO) 0.3 % (0-2); EOSINOPHILS % (AUTO) 0.1 % (0-6); HEMATOCRIT 28.4 % (36.0-47.0); HEMOGLOBIN 9.7 g/dL (12.0-15.5); LYMPHOCYTES % (AUTO) 18.7 % (13-45); MEAN CORPUSCULAR HEMOGLOBIN 29.4 pg (27.0-33.4); MEAN CORPUSCULAR HGB CONC 34.1 g/dL (32.0-36.0); MEAN CORPUSCULAR VOLUME 86 fl (80-97); MONOCYTES % (AUTO) 12.4 % (3-13); PLATELET COUNT 426 10^3/uL (150-450); RED CELL DISTRIBUTION WIDTH 15.7 % (11.5-14.0); SEGMENTED NEUTROPHILS % (AUTO) 68.5 % (42-78); TOTAL CELLS COUNTED % (AUTO) 100 %; WHITE BLOOD COUNT 8.2 10^3/uL (4.0-10.5)
[2020-08-08 07:01] LABS: ANION GAP 9 (5-19); BLOOD UREA NITROGEN 14 mg/dL (7-20); CALCIUM 9.3 mg/dL (8.4-10.2); CARBON DIOXIDE 31 mmol/L (22-30); CHLORIDE 101 mmol/L (98-107); GLUCOSE 116 mg/dL (75-110); POTASSIUM 3.8 mmol/L (3.6-5.0)
[2020-08-08] MEDS: BUDESONIDE NEB 0.25 MG/2 ML AMPUL NEB SCH (08:38)
[2020-08-08] MEDS: ENOXAPARIN SODIUM INJ 40 MG/0.4 ML DISP.SYRIN SUBCUT SCH (09:29)
[2020-08-08] MEDS: DOCUSATE SODIUM 100 MG CAPSULE PO SCH (09:29)
[2020-08-08] MEDS: LEVOFLOXACIN 500 MG TABLET PO SCH (09:34)
[2020-08-08] MEDS ORDERED: FLUTICASONE/VILANTEROL 200-25 MCG/DOSE IH SCH (10:00)
[2020-08-08] MEDS ORDERED: PREDNISONE 20 MG TABLET PO SCH (10:00)
[2020-08-08] MEDS ORDERED: ESCITALOPRAM OXALATE 10 MG TABLET PO SCH (10:00)
[2020-08-08 11:44] VITALS: BP 127/78
--- NOTE | 2020-08-08 13:59 | PDOC CONSULTATION ---
Consultation Consult Date: 08/08/20 Attending physician:: CHRISTELLE GROVES Provider Consulted: DANN MOREAU Consult reason:: Dyspnea History of Present Illness Admission Date/PCP: 08/05/20 21:06 History of Present Illness: BALJIT FARRIS is a 49 year old female with a [id number] history present complaint and she is noticed shortness of breath and a cough mom says nausea vomiting and diarrhea fever questionable chills. Her PPD was negative she has no history of chronic lung disease as a child or adolescent but admits to being exposed to large amounts of passive smoke as a child as well as an adult. 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 No pets no recent travel no anginal-like chest pain sleeps on 2 pillows no PND no nocturnal cough rare edema. She is unaware of any snoring, restless sleep, unrestful sleep or excessive daytime somnolence. At the time of admission her chest x-ray was normal but her arterial blood gases showed a significant hypercapnia. She was treated with BiPAP With recently good results. Past Medical History Cardiac Medical History: Reports: Congestive Heart Failure, Myocardial Infarction, Hypertension Pulmonary Medical History: Reports: Asthma, Bronchitis, Chronic Obstructive Pulmonary Disease (COPD), Pneumonia Musculoskeltal Medical History: Reports: Arthritis Psychiatric Medical History: Reports: Depression Hematology: Reports: Anemia Denies: Sickle Cell Disease Infectious Medical History: Denies: Methicillin-Resistant Staph Aureus Past Surgical History Past Surgical History: Reports: Cholecystectomy Social History Information Source: Patient, [facility] Records Smoking Status: Former Smoker Cigarettes Packs Per Day: 2 Number of Years Smokin Passive smoke exposure as: Both Frequency of Alcohol Use: None Hx Recreational Drug Use: No Drugs: None Hx Prescription Drug Abuse: No Do you have pets?: No Have you had any respiratory illnesses as a child?: No Have you been exposed to any sick contacts recently?: No Have you had any recent respiratory illnesses?: Yes Have you travelled outside of [place] in the past 12 months?: No - Advance Directive Resuscitation Status: Do Not Resuscitate - In the event of cardiac arrest, patient wants to be a DNR/DNI but in the absence of cardiac arrest, patient is okay with intubation. Family History Family History: Hypertension. denies: COPD Parental Family History Reviewed: Yes Children Family History Reviewed: Yes Sibling(s) Family History Reviewed.: Yes Medication/Allergy Home Medications: Escitalopram Oxalate [Lexapro 10 mg Tablet] 10 mg PO DAILY 08/07/19 Lisinopril [Prinivil 10 mg Tablet] 5 mg PO QPM 08/07/19 Budesonide/Formoterol Fumarate [Symbicort HFA 160-4.5 mcg Inhaler 6 gm] 2 puff IH Q12 #1 inhaler 08/09/19 Ipratropium/Albuterol Sulfate [Duoneb 3 ml Ampul] 3 ml NEB RTQ4HP PRN 15 Days #50 vial.neb 08/09/19 Cetirizine HCl [Zyrtec 10 mg Tablet] 10 mg PO QPM 08/06/20 Fluticasone Propionate [Flonase Nasal [place] 50 Mcg/[place] 16 gm] 2 spray NASL QPM 08/06/20 Montelukast Sodium [Singulair 10 mg Tablet] 10 mg PO QPM 08/06/20 Roflumilast [Daliresp] 500 mcg PO QPM 08/06/20 Tiotropium [place] [Spiriva Handihaler 5 Cap/Kit (18 Mcg/Cap)] 1 cap IH QPM 08/06/20 Albuterol Sulfate [Proair HFA Inhalation Aerosol 8.5 gm MDI] 2 puff IH Q6HP PRN 90 Days #3 inhaler 08/08/20 Levofloxacin [Levaquin 500 mg Tablet] 500 mg PO DAILY 3 Days #3 tablet 08/08/20 Prednisone [Deltasone 5 mg Tablet] 40 mg PO DAILY 4 Days #16 tablet 08/08/20 Allergies/Adverse Reactions: Penicillins Allergy (Severe, Verified 08/25/18 18:24) Anaphylaxis Review of Systems All systems: reviewed and no additional remarkable complaints except as stated Physical Exam Vital Signs: Temp Pulse Resp BP Pulse Ox 97.6 F 84 12 142/86 H 100 08/08/20 07:30 08/08/20 07:30 08/08/20 07:30 08/08/20 07:30 08/08/20 07:30 Intake & Output 08/07/20 08/08/20 08/09/20 06:59 06:59 06:59 Intake Total 360 240 Output Total 1150 Balance -790 240 Weight 51 kg 51.8 kg General appearance: PRESENT: no acute distress, cooperative, disheveled, thin, well-developed, well-nourished Head exam: PRESENT: atraumatic, normocephalic Eye exam: PRESENT: conjunctiva pale, EOMI. ABSENT: nystagmus, periorbital swelling, scleral icterus Mouth exam: PRESENT: dry mucosa, neck supple, tongue midline Teeth exam: PRESENT: poor dentation Neck exam: ABSENT: carotid bruit, full ROM, JVD, lymphadenopathy, meningismus, tenderness, thyromegaly, tracheal deviation, tracheostomy, other Respiratory exam: PRESENT: decreased breath sounds, prolonged expiratory phas, rhonchi, symmetrical, unlabored. ABSENT: rales, retraction, stridor, tachypnea, wheezes Cardiovascular exam: PRESENT: RRR, +S1, +S2. ABSENT: tachycardia Pulses: PRESENT: normal radial pulses GI/Abdominal exam: PRESENT: soft. ABSENT: distended, mass, rebound, tenderness Extremities exam: ABSENT: calf tenderness, clubbing, tenderness Musculoskeletal exam: ABSENT: deformity, dislocation Neurological exam: PRESENT: alert, awake Psychiatric exam: PRESENT: appropriate affect Skin exam: PRESENT: dry, warm Results Laboratory Results: 08/08/20 05:58 08/08/20 05:58 08/08/20 08/08/20 05:58 05:58 WBC 8.2 RBC 3.30 L Hgb 9.7 L Hct 28.4 L MCV 86 MCH 29.4 MCHC 34.1 RDW 15.7 H Plt Count 426 Seg Neutrophils % 68.5 Sodium 140.5 Potassium 3.8 Chloride 101 Carbon Dioxide 31 H Anion Gap 9 BUN 14 Creatinine 0.69 Est GFR ( Amer) > 60 Glucose 116 H Calcium 9.3 Impressions: Chest X-Ray 08/05/20 18:42 IMPRESSION: NO ACUTE RADIOGRAPHIC FINDING IN THE CHEST. Assessment & Plan - Diagnosis (1) Acute on chronic respiratory failure with hypoxia and hypercapnia Is this a current diagnosis for this admission?: Yes Plan: We will attempt to get home BiPAP due to her hypercapnic respiratory failure - Time Time Spent with patient: 55 min Time Spent: 50 to 70 Minutes
--- NOTE | 2020-08-08 20:11 | PDOC DISCHARGE SUMMARY ---
Impression - Admit/DC Date/PCP Admission Date/Primary Care Provider: 08/05/20 21:06 Discharge Date: 08/08/20 - Discharge Diagnosis (1) Acute respiratory failure with hypercapnia Is this a current diagnosis for this admission?: Yes (2) COPD exacerbation Is this a current diagnosis for this admission?: Yes (3) Acute bronchitis Is this a current diagnosis for this admission?: Yes (4) Chronic hypoxemic respiratory failure Is this a current diagnosis for this admission?: Yes (5) Person under investigation for COVID-19 Is this a current diagnosis for this admission?: Yes (6) Hypertension Is this a current diagnosis for this admission?: Yes - Additional Information Resuscitation Status: Do Not Resuscitate - In the event of cardiac arrest, patient wants to be a DNR/DNI but in the absence of cardiac arrest, patient is okay with intubation. Discharge Diet: As Tolerated Discharge Activity: Activity As Tolerated Referrals: SUSAN TREJO MD [COMMUNITY BASED STAFF] - 08/15/20 9:15 am ([facility]) Prescriptions: Prednisone [Deltasone 5 mg Tablet] 40 mg PO DAILY 4 Days #16 tablet Levofloxacin [Levaquin 500 mg Tablet] 500 mg PO DAILY 3 Days #3 tablet Albuterol Sulfate [Proair HFA Inhalation Aerosol 8.5 gm MDI] 2 puff IH Q6HP PRN 90 Days #3 inhaler PRN Reason: SOB Home Medications: Escitalopram Oxalate [Lexapro 10 mg Tablet] 10 mg PO DAILY 08/07/19 Lisinopril [Prinivil 10 mg Tablet] 5 mg PO QPM 08/07/19 Budesonide/Formoterol Fumarate [Symbicort HFA 160-4.5 mcg Inhaler 6 gm] 2 puff IH Q12 #1 inhaler 08/09/19 Ipratropium/Albuterol Sulfate [Duoneb 3 ml Ampul] 3 ml NEB RTQ4HP PRN 15 Days #50 vial.neb 08/09/19 Cetirizine HCl [Zyrtec 10 mg Tablet] 10 mg PO QPM 08/06/20 Fluticasone Propionate [Flonase Nasal [place] 50 Mcg/[place] 16 gm] 2 spray NASL QPM 08/06/20 Montelukast Sodium [Singulair 10 mg Tablet] 10 mg PO QPM 08/06/20 Roflumilast [Daliresp] 500 mcg PO QPM 08/06/20 Tiotropium [place] [Spiriva Handihaler 5 Cap/Kit (18 Mcg/Cap)] 1 cap IH QPM 08/06/20 Albuterol Sulfate [Proair HFA Inhalation Aerosol 8.5 gm MDI] 2 puff IH Q6HP PRN 90 Days #3 inhaler 08/08/20 Levofloxacin [Levaquin 500 mg Tablet] 500 mg PO DAILY 3 Days #3 tablet 08/08/20 Prednisone [Deltasone 5 mg Tablet] 40 mg PO DAILY 4 Days #16 tablet 08/08/20 History of Present Illiness History of Present Illness: BALJIT FARRIS is a 49 year old female, with history of COPD on 2 L nasal can nula, hypertension, who presents to the hospital via EMS for progressive shortness of breath over the past 2 days. Patient has been also experiencing increased cough with mild sputum production. She became significantly dyspneic today and could barely catch her breath. She experienced chest tightness at that time. She notes feeling warm to the touch for the past few days but is not clear if she actually had a fever. Also endorses body aches. Denies rhinorrhea or nasal congestion. Denies sore throat. On presentation of the EMS, patient was barely moving air and was given nebulizer treatments, 125 mg of Solu-Medrol as well as magnesium in route to the hospital. In the ER patient was placed on a BiPAP after being noted to be acidotic. Patient states she has her inhalers at home and has been using nebulizer frequently in the past few days but has not been working. She follows with Dr. Jennings for her COPD. Hospital Course Hospital Course: 08/06/20 D2 hospital stay. she was seen and examined at bedside. She reports less SOB, currently on 2L NC saturating 97%. Complains of headache which she attributes to caffeine withdrawal. No chest pain, no palpitations, minimal cough. 08/07/20 D3 Hospital stay. She was seen and examined at bedside. She reports improvement of her breathing although still not back to baseline. COVID test negative. She remains afebrile, no chest pain, no palpitations. Most of her inhalers were resumed. Atif was discharged on 08/08/20. She is back to her baseline O2 needs. Dr. Valdivia saw her who will follow up with her oupatient. Sh ewas discharged on levaquin to complete 7 days and prednsione to complete 5 days. Physical Exam Vital Signs: Temp Pulse Resp BP Pulse Ox 97.6 F 85 24 H 127/78 H 100 08/08/20 11:38 08/08/20 11:38 08/08/20 11:38 08/08/20 11:38 08/08/20 11:38 Intake & Output 08/07/20 08/08/20 08/09/20 06:59 06:59 06:59 Intake Total 360 240 Output Total 1150 Balance -790 240 Weight 51 kg 51.8 kg General appearance: PRESENT: no acute distress, cooperative Head exam: PRESENT: atraumatic, normocephalic Eye exam: PRESENT: EOMI, PERRLA Mouth exam: PRESENT: moist Neck exam: PRESENT: full ROM Respiratory exam: PRESENT: symmetrical, unlabored, wheezes Cardiovascular exam: PRESENT: RRR, +S1, +S2 Pulses: PRESENT: +2 pedal pulses bilateral GI/Abdominal exam: PRESENT: normal bowel sounds, soft. ABSENT: rebound, tenderness Extremities exam: ABSENT: +2 edema Musculoskeletal exam: PRESENT: full ROM Neurological exam: PRESENT: alert, awake, oriented to person, oriented to place, oriented to time, oriented to situation Psychiatric exam: PRESENT: normal mood Skin exam: PRESENT: normal color Results Laboratory Results: WBC 8.2 10^3/uL (4.0-10.5) 08/08/20 05:58 RBC 3.30 10^6/uL (3.72-5.28) L 08/08/20 05:58 Hgb 9.7 g/dL (12.0-15.5) L 08/08/20 05:58 Hct 28.4 % (36.0-47.0) L 08/08/20 05:58 MCV 86 fl (80-97) 08/08/20 05:58 MCH 29.4 pg (27.0-33.4) 08/08/20 05:58 MCHC 34.1 g/dL (32.0-36.0) 08/08/20 05:58 RDW 15.7 % (11.5-14.0) H 08/08/20 05:58 Plt Count 426 10^3/uL (150-450) 08/08/20 05:58 Lymph % (Auto) 18.7 % (13-45) 08/08/20 05:58 [place] % (Auto) 12.4 % (3-13) 08/08/20 05:58 Eos % (Auto) 0.1 % (0-6) 08/08/20 05:58 Baso % (Auto) 0.3 % (0-2) 08/08/20 05:58 Absolute Neuts (auto) 5.6 10^3/uL (1.7-8.2) 08/08/20 05:58 Absolute Lymphs (auto) 1.5 10^3/uL (0.5-4.7) 08/08/20 05:58 Absolute Monos (auto) 1.0 10^3/uL (0.1-1.4) 08/08/20 05:58 Absolute Eos (auto) 0.0 10^3/uL (0.0-0.6) 08/08/20 05:58 Absolute Basos (auto) 0.0 10^3/uL (0.0-0.2) 08/08/20 05:58 Seg Neutrophils % 68.5 % (42-78) 08/08/20 05:58 ESR 29 mm/hr (0-30) 08/06/20 05:48 D-Dimer 0.54 ug/mL (0.00-0.50) H 08/06/20 05:48 Carbonic Acid 1.31 mmol/L (1.05-1.35) 08/06/20 00:10 HCO3/H2CO3 Ratio 18:1 08/06/20 00:10 ABG pH 7.37 (7.35-7.45) 08/06/20 00:10 ABG pCO2 43.4 mmHg (35-45) 08/06/20 00:10 ABG pO2 151.0 mmHg (80-100) H 08/06/20 00:10 ABG HCO3 24.7 mmol/L (20-24) H 08/06/20 00:10 ABG Total CO2 26.0 mmol/L (21-25) H 08/06/20 00:10 ABG O2 Saturation 98.9 % (94-98) H 10/13/20 00:10 ABG Base Excess -0.6 mmol/L 08/06/20 00:10 VBG pH 7.19 (7.30-7.42) L* 08/05/20 20:42 VBG pCO2 85.4 mmHg (35-63) H* 08/05/20 20:42 VBG HCO3 31.6 mmol/L (20-32) 08/05/20 20:42 VBG Base Excess 0.8 mmol/L 08/05/20 20:42 FiO2 45% 08/06/20 00:10 Sodium 140.5 mmol/L (137-145) 08/08/20 05:58 Potassium 3.8 mmol/L (3.6-5.0) 08/08/20 05:58 Chloride 101 mmol/L (98-107) 08/08/20 05:58 Carbon Dioxide 31 mmol/L (22-30) H 08/08/20 05:58 Anion Gap 9 (5-19) 08/08/20 05:58 BUN 14 mg/dL (7-20) 08/08/20 05:58 Creatinine 0.69 mg/dL (0.52-1.25) 08/08/20 05:58 Est GFR ( Amer) > 60 (>60) 08/08/20 05:58 Est GFR (MDRD) Non-Af > 60 (>60) 08/08/20 05:58 Glucose 116 mg/dL (75-110) H 08/08/20 05:58 Calcium 9.3 mg/dL (8.4-10.2) 08/08/20 05:58 Phosphorus 3.6 mg/dL (2.5-4.5) 08/06/20 05:48 Magnesium 2.3 mg/dL (1.6-2.3) 08/06/20 05:48 Ferritin 8.08 ng/mL (11.1-264.0) L 08/06/20 05:48 Total Bilirubin 0.5 mg/dL (0.2-1.3) 08/05/20 19:03 Direct Bilirubin 0.3 mg/dL (0.0-0.4) 08/05/20 19:03 Neonat Total Bilirubin Not Reportable 08/05/20 19:03 Neonat Direct Bilirubin Not Reportable 08/05/20 19:03 Neonat Indirect Bili Not Reportable 08/05/20 19:03 AST 25 U/L (14-36) 08/05/20 19:03 ALT 19 U/L (<35) 08/05/20 19:03 Alkaline Phosphatase 64 U/L (38-126) 08/05/20 19:03 C-Reactive Protein < 5.0 mg/L (<10.0) 08/06/20 05:48 Total Protein 6.9 g/dL (6.3-8.2) 08/05/20 19:03 Albumin 4.3 g/dL (3.5-5.0) 08/05/20 19:03 COVID-19 Source See comment 08/05/20 21:17 COVID-19 (JAGDISH) Not Detected (Not Detect) 08/05/20 21:17 Influenza A (Rapid) NEGATIVE (NEGATIVE) 08/05/20 23:18 Influenza B (Rapid) NEGATIVE (NEGATIVE) 08/05/20 23:18 Impressions: Chest X-Ray 08/05/20 18:42 IMPRESSION: NO ACUTE RADIOGRAPHIC FINDING IN THE CHEST. Plan Plan of Treatment: follow up outpatient with Pulm - continue inhalers for COPD - complete steroids and abx treatment Time Spent: Less than 30 Minutes Stroke Is this a Stroke Patient?: No Acute Heart Failure Is this a Heart Failure Patient?: No
== END 2020-08-08 12:12 | disposition home or self-care (01) | DRG 189 ==
LOC: ER 18:38 → EH 21:06 → 3N 08-06 12:30 → 3W 08-07 18:45
PROVIDERS: ADMIT Internal Medicine; ATTEND Internal Medicine
DX: J96.22 Acute and chronic respiratory failure with hypercapnia (principal); J44.1 Chronic obstructive pulmonary disease with (acute) exacerbation; E87.2 Acidosis; J44.0 Chronic obstructive pulmonary disease with (acute) lower respiratory infection; J96.21 Acute and chronic respiratory failure with hypoxia; J20.9 Acute bronchitis, unspecified; I50.9 Heart failure, unspecified; I11.0 Hypertensive heart disease with heart failure; M19.90 Unspecified osteoarthritis, unspecified site; I25.2 Old myocardial infarction; Z66 Do not resuscitate; Z20.828 Contact with and (suspected) exposure to other viral communicable diseases; Z79.51 Long term (current) use of inhaled steroids; Z79.52 Long term (current) use of systemic steroids; Z79.899 Other long term (current) drug therapy; Z87.891 Personal history of nicotine dependence
CPT/HCPCS: 36415; 36600; 71045; 80048; 80053; 82728; 82803; 83735; 84100; 85025; 85379; 85652; 86140; 87040; 87070; 87205; 87635; 87804; 93005; 93010; 94640; 94660; 96361; 96374; 99285; C9803; J1650; J1885; J2405; J2920; J3490; J7120; J7512; J7613; J7614; J7644

== ENCOUNTER → 2020-08-21 | Outpatient (CLI) | payer MEDICAID ==
[~2020-08-21] MED LIST: LACTATED RINGERS 1000 ML IV PRN; LIDOCAINE 0.5% INJ-PF (5 MG/ML) 50 ML SDV SUBCUT PRN; LIDOCAINE 2% INJ-PF (20 MG/ML) 10 ML AMPUL ONE; PROPOFOL INJ 200 MG/20 ML VIAL IV ONE
[2020-08-21 10:27] VITALS: BP 116/81
== END ==
LOC: OD 10:25 → EDSTATUS 08-26 12:30
PROVIDERS: ATTEND Internal Medicine Gastroenterology
DX: Z03.818 Encounter for observation for suspected exposure to other biological agents ruled out (principal)
CPT/HCPCS: 87635; C9803; J2704; J3490